=== PATIENT | female | born 1945 | race Caucasian/White ===

== ENCOUNTER 2021-11-24 10:12 | Emergency (ER) | payer MEDICARE ==
[~2021-11-24] VITALS: Ht 172.7 cm; Wt 109.1 kg
[2021-11-24] MEDS ORDERED: BACITRACIN TOPICAL OINT PACKET. TP ONE (10:30)
--- NOTE | 2021-11-24 10:40 | PHYS DOC ---
Past Medical History Additional Past Medical Histor: obesity Alcohol Use: None Drug Use: None General Adult EDM: Chief Complaint: WOUND CHECK HPI: HPI: Patient is a 76 year old female who presents with skin tear to her left lower extremity sustained yesterday and concern for UTI. Patient is currently in rehabilitation facility after having admission for pulmonary issues. Yesterday, during physical therapy, she scraped her left lerma on a metal box. Patient is on blood thinners. She refused to present to the hospital for wound closure yesterday. This morning, it was still bleeding, so she wanted to have it evaluated. Additionally, patient states that it "hurts like hell" when she has to pee and there is significant sediment and dark color. She currently has a Kolb catheter in place. Patient reports shortness of breath, but this is consistent with her current baseline. She has no other complaints at this time. Review of Systems: Review of Systems: ROS negative or noncontributory except as mentioned in HPI. Heart Score: C/O Chest Pain: No Current Medications: Current Medications Medications (Trade) Dose Ordered Sig/Finesse Start Time Stop Time Status Last Admin Dose Admin Bacitracin (Bacitracin Zinc Oint Pkt) 1 pkt 1X ONCE 11/24/21 10:30 11/24/21 10:31 UNV Allergies: Allergies: Allergies Coded Allergies Type Severity Reaction Last Updated Verified PARTH Inhibitors Allergy Unknown 11/24/21 Yes ciprofloxacin Allergy Unknown 11/24/21 Yes digoxin Allergy Unknown 11/24/21 Yes erythromycin base Allergy Unknown 11/24/21 Yes olmesartan Allergy Unknown 11/24/21 Yes Physical Exam: PE: Constitutional: Well developed, well nourished, no acute distress, non-toxic appearance. HENT: Normocephalic, atraumatic, bilateral external ears normal, nose normal. Eyes: EOMI, conjunctiva normal, no discharge. Neck: Normal range of motion,no stridor. Skin: Skin tear left lerma in a wide V-shape measuring 1.2x2cm with minimal bleeding. Skin otherwise warm, dry, no erythema, no rash. Back: No tenderness, no CVA tenderness. Extremities: No tenderness, no cyanosis, no clubbing, ROM intact, no edema. See above for skin tear on left lower leg. Neurologic: Alert and oriented x4, normal motor function, normal sensory function, no focal deficits noted. Current Patient Data: Labs: Laboratory Tests Test 11/24/21 10:44 Urine Collection Type U cath Urine Color (Auto) Yellow Urine Turbidity Turbid Urine pH (Auto) 7.0 (<5.0-8.0) Urine Specific [place] 1.017 (1.000-1.030) Urine Protein (Auto) 100 mg/dL (Negative) Urine Glucose (Auto)(UA) Negative mg/dL (Negative) Urine Ketones (Auto) Negative mg/dL (Negative) Urine Blood (Auto) Large (Negative) Urine Nitrite Negative (Negative) Urine Bilirubin (Auto) Negative (Negative) Urine Urobilinogen (Auto) Normal mg/dL (Normal) Urine Leukocyte Esterase (Auto) Large (Negative) Urine RBC Field obscured /HPF (0-2) Urine WBC >40 /HPF (0-4) Urine Bacteria Many /HPF (0-FEW) Vital Signs: Vital Signs Date Time Temp Pulse Resp B/P (MAP) Pulse Ox O2 Delivery O2 Flow Rate FiO2 11/24/21 11:14 51 18 188/81 (116) 97 Room Air 11/24/21 10:13 98.1 62 18 201/91 (127) 98 Room Air 98.1 Course & Med Decision Making: Course & Med Decision Making Pertinent Labs and Imaging studies reviewed. (See chart for details) Patient is a 76-year-old female who presents from rehabilitation/long-term for a skin tear on her left lower leg. Additionally, she thinks she might have UTI. Urinalysis reveals UTI, for which patient will be treated with Omnicef. Patient was scheduled to have an outpatient CT chest done today at 11 AM, but missed her appointment secondary to her visit here today. She has been rescheduled for 1:00 this afternoon. Patient received first dose of antibiotic here in the department and should continue when she returned to the long-term. Patient questions were answered. Return precautions were provided. Patient understands and is agreeable to discharge plan. Ankita Disclaimer: Ankita Disclaimer: This electronic medical record was generated, in whole or in part, using a voice recognition dictation system. Departure Departure Impression: Primary Impression: Noninfected skin tear of left leg Qualified Codes: S81.812A - Laceration without foreign body, left lower leg, initial encounter Additional Impression: Urinary tract infection Qualified Codes: N30.01 - Acute cystitis with hematuria Disposition: HOME / SELF CARE / HOMELESS Condition: STABLE Referrals: KLEVER CHOWDARY MD (PCP) Patient Instructions: Wound Care, [id number] Additional Instructions: EMERGENCY DEPARTMENT GENERAL DISCHARGE INSTRUCTIONS Thank you for coming to [facility] Emergency Department (ED) today and trusting us with you care. We trust that you had a positive experie nce in our Emergency Department. If you wish to speak to the department management, you may call the director at . YOUR FOLLOW UP INSTRUCTIONS ARE FOLLOWS: 1. Follow up with your primary care doctor. If you do not have a primary doctor, please ask for a resource list of physicians or clinics that may be able to assist you with follow up care. 2. The emergency provider has interpreted your imaging studies, if any were ordered. The radiology correctional treatment specialist also reviewed them. If there is a change in the findings, you will be notified in 48 hours when at all possible. 3. If a lab test or culture has been done, your results will be reviewed and you will be notified if you need a change in treatment. 4. Follow instructions verbalized to you and refer to the printouts if needed. ADDITIONAL INSTRUCTIONS AND INFORMATION: 1. Your care today has been supervised by a physician who is specially trained in emergency care. Many problems require more than one evaluation for a complete diagnosis and treatment. We recommend that you schedule your follow up appointment as recommended to ensure complete treatment of you illness or injury. If you are unable to obtain follow up care and continue to have a problem, or if your condition worsens, we recommend that you return to the ED. 2. We are not able to safely determine your condition over the phone nor are we able to give sound medical advice over the phone. For these safety reasons, if you call for medical advice we will ask you to come to the ED for further evaluation. 3. If you have any questions regarding these discharge instructions please call the ED at . SAFETY INFORMATION: In the interest of safety, wellness, and injury prevention; we encourage you to wear your seat belt, if you smoke; quite smoking, and we encourage family to use a protective helmet for bicycling and other sporting events that present an increased risk for head injury. IF YOUR SYMPTOMS WORSEN OR NEW SYMPTOMS DEVELOP, OR YOU HAVE CONCERNS ABOUT YOUR CONDITION; OR IF YOUR CONDITION WORSENS WHILE YOU ARE WAITING FOR YOUR FOLLOW UP APPOINTMENT; EITHER CONTACT YOUR PRIMARY CARE DOCTOR, THE PHYSICIAN WHOSE NAME AND NUMBER YOU WERE GIVEN, OR RETURN TO THE ED IMMEDIATELY. Scripts Cefdinir (CEFDINIR) 300 Mg Capsule 1 CAP PO BID, #[id number] CAP Prov: PABLITO WATTS 11/24/21 PABLITO WATTS November 24, 2021 10:40
[2021-11-24 11:14] VITALS: BP 188/81
[2021-11-24] MEDS ORDERED: DIPHTH,PERTUSS(ACELL),TET TOX 0.5 ML DISP.SYRIN. VAX IM ONE (11:15)
[2021-11-24 11:16] LABS: BACTERIA,URINE MANY /HPF (0-FEW)
[2021-11-24 11:18] LABS: RBC,URINE FIELD OBSCURED /HPF (0-2); WBC,URINE >40 /HPF (0-4)
[2021-11-24] MEDS ORDERED: CEFD300C PO (11:29)
[2021-11-24] MEDS ORDERED: CEFDINIR 300 MG CAPSULE PO ONE (11:30)
[2021-11-24] MEDS ORDERED: SURGICEL HEMOSTAT 4X8 EACH. TP ONE (15:45)
[2021-11-24] MEDS ORDERED: GELATIN SPONGE SIZE 12-7MM SPONGE. TP ONE (16:00)
== END 2021-11-24 12:13 | disposition home or self-care (01) ==
LOC: ER 10:12
DX: S81.812A Laceration without foreign body, left lower leg, initial encounter (principal); N30.01 Acute cystitis with hematuria; Y28.8XXA Contact with other sharp object, undetermined intent, initial encounter; Y93.89 Activity, other specified; Y92.89 Other specified places as the place of occurrence of the external cause; Y99.8 Other external cause status
CPT/HCPCS: 81001; 87086; 90471; 90715; 99283-25

== ENCOUNTER → 2021-11-24 | Outpatient (CLI) | payer MEDICARE ==
[~2021-11-24] MED LIST: CEFD300C PO; GELATIN SPONGE SIZE 12-7MM SPONGE. ONE
[2021-11-24 10:13] VITALS: BP 201/91
--- NOTE | 2021-11-24 15:23 | RAD ---
CT of the chest without contrast: Clinical History: Pulmonary edema. Axial helical images of the chest were obtained without contrast. Findings comparison is 9 mm pulmonary nodule in the right lower lobe. There is a small right pleural effusion with adjacent infiltrate. There is linear opacities along the major fissure on the right. Th e left lung is clear. The heart is mildly dilated. There is minimal coronary artery calcifications. There is no mediastinal or hilar lymphadenopathy. Impression: 1. Small right effusion with adjacent infiltrate. 2. 9 mm pulmonary nodule right lower lobe. 3. Additional pulmonary infiltrates or decubitus atelectasis or pneumonia. 4. Dilated cardiomegaly. Recommend a 3-6 month follow-up CT chest without contrast. End of impression PQRS Compliance Statement: One or more of the following individualized dose reduction techniques were utilized for this examinat ion: 1. Automated exposure control 2. Adjustment of the mA and/or kV according to patient size 3. Use of iterative reconstruction technique Electronically signed by: Marciano Walsh III, MD (11/24/2021 3:21 PM) [facility]
== END ==
LOC: CT 15:03
PROVIDERS: ATTEND Internal Medicine
DX: R91.1 Solitary pulmonary nodule (principal); J90 Pleural effusion, not elsewhere classified; I51.7 Cardiomegaly; I25.10 Atherosclerotic heart disease of native coronary artery without angina pectoris
CPT/HCPCS: 71250

== ENCOUNTER 2021-12-06 09:34 | Inpatient (IN) | payer MEDICARE, BC ==
[~2021-12-06] VITALS: Ht 172.7 cm; Wt 113.8 kg
[~2021-12-06 09:34] MED LIST changes: -GELATIN SPONGE SIZE 12-7MM SPONGE. ONE
[2021-12-06] MEDS ORDERED: ASPIRIN 325 MG TABLET PO ONE (09:45)
[2021-12-06 10:05] LABS: BASO # 0.1 x10^3/uL (0.0-0.2); BASO % 1 % (0-3); EOS # 0.2 x10^3/uL (0.0-0.7); EOS % 3 % (0-3); HEMATOCRIT 33.5 % (36.0-47.0); HEMOGLOBIN 10.9 g/dL (12.0-15.5); LYMPH # 1.1 x10^3/uL (1.0-4.8); LYMPH % 16 % (24-48); MEAN CORPUSCULAR HEMOGLOBIN 31 pg (25-35); MEAN CORPUSCULAR HGB CONC 32 g/dL (31-37); MEAN CORPUSCULAR VOLUME 96 fL (79-100); MONO # 0.5 x10^3/uL (0.0-1.1); MONO % 6 % (0-9); NEUT # 5.2 x10^3/uL (1.8-7.7); NEUT % 74 % (31-73); PLATELET COUNT 351 x10^3/uL (140-400); RED CELL DISTRIBUTION WIDTH 14.2 % (11.5-14.5); WHITE BLOOD COUNT 7.1 x10^3/uL (4.0-11.0)
[2021-12-06] MEDS ORDERED: FUROSEMIDE 40 MG/4 ML VIAL. IVP ONE (10:15)
[2021-12-06 10:16] LABS: PROTHROMBIN TIME PATIENT 16.2 SEC (11.7-14.0)
[2021-12-06 10:20] LABS: CALCIUM 8.9 mg/dL (8.5-10.1); CREATININE 0.8 mg/dL (0.6-1.0); GFR 69.6; POTASSIUM 3.6 mmol/L (3.5-5.1)
[2021-12-06 10:25] LABS: ALBUMIN 2.6 g/dL (3.4-5.0); ALBUMIN/GLOBULIN RATIO 0.7 (1.0-1.7); MAGNESIUM 1.9 mg/dL (1.8-2.4); TOTAL BILIRUBIN 0.2 mg/dL (0.2-1.0); TOTAL PROTEIN 6.4 g/dL (6.4-8.2)
--- NOTE | 2021-12-06 12:11 | EKG ---
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
--- NOTE | 2021-12-06 12:12 | EKG ---
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
--- NOTE | 2021-12-06 12:41 | PHYS DOC ---
Past Medical History Additional Past Medical Histor: obesity, lymphedema, TAMEKA Past Surgical History: Other Additional Past Surgical Histo: artifical right eye, right arm amputation Smoking Status: Former Smoker Alcohol Use: None General Adult EDM: Chief Complaint: SHORTNESS OF BREATH HPI: HPI: Patient is a 76 year old female with history of heart failure presents with shortness of breath. Patient was picked up from assisted living facility placed on CPAP due to low oxygen levels, patient recovered well after being placed on CPAP. Patient brought to the emergency department. She was able to be placed on nasal cannula, patient stable besides shortness of breath and increased oxygen requirement. No other symptoms noted besides cough. Review of Systems: Review of Systems: Constitutional: Denies fever or chills. [] Eyes: Denies change in visual acuity. [] HENT: Denies nasal congestion or sore throat. [] Respiratory: Positive cough and shortness of breath. [] Cardiovascular: Denies chest pain or edema. [] GI: Denies abdominal pain, nausea, vomiting, bloody stools or diarrhea. [] : Denies dysuria. [] Musculoskeletal: Denies back pain or joint pain. [] Integument: Denies rash. [] Neurologic: Denies headache, focal weakness or sensory changes. [] Endocrine: Denies polyuria or polydipsia. [] Lymphatic: Denies swollen glands. [] Psychiatric: Denies depression or anxiety. [] Heart Score: C/O Chest Pain: No Risk Factors: Risk Factors: DM, Current or recent (<one month) smoker, HTN, HLP, family history of CAD, obesity. Risk Scores: Score 0 - 3: 2.5% MACE over next 6 weeks - Discharge Home Score 4 - 6: 20.3% MACE over next 6 weeks - Admit for Clinical Observation Score 7 - 10: 72.7% MACE over next 6 weeks - Early Invasive Strategies Current Medications: Current Medications Medications (Trade) Dose Ordered Sig/Finesse Start Time Stop Time Status Last Admin Dose Admin Aspirin (Jannie Aspirin) 325 mg 1X ONCE 12/06/21 09:45 12/06/21 09:46 DC Furosemide (Lasix) 40 mg 1X ONCE 12/06/21 10:15 12/06/21 10:16 DC 12/06/21 10:32 40 MG Allergies: Allergies: Allergies Coded Allergies Type Severity Reaction Last Updated Verified PARTH Inhibitors Allergy Intermediate 11/24/21 Yes ciprofloxacin Allergy Intermediate 11/24/21 Yes digoxin Allergy Intermediate 11/24/21 Yes erythromycin base Allergy Intermediate 11/24/21 Yes olmesartan Allergy Intermediate 11/24/21 Yes Physical Exam: PE: Constitutional: Well developed, well nourished, no acute distress, non-toxic appearance. [] HENT: Normocephalic, atraumatic, bilateral external ears normal, oropharynx moist, no oral exudates, nose normal. [] Eyes: PERRLA, EOMI, conjunctiva normal, no discharge. [] Neck: Normal range of motion, no tenderness, supple, no stridor. [] Cardiovascular:Heart rate regular rhythm, no murmur [] Lungs & Thorax: Bilateral breath sounds diminished with minimal crackles at bases [] Abdomen: Bowel sounds normal, soft, no tenderness, no masses, no pulsatile masses. [] Skin: Warm, dry, no erythema, no rash. [] Back: No tenderness, no CVA tenderness. [] Extremities: No tenderness, no cyanosis, no clubbing, ROM intact, 2+ bilateral pitting edema. [] Neurologic: Alert and oriented X 3, normal motor function, normal sensory function, no focal deficits noted. [] Psychologic: Affect normal, judgement normal, mood normal. [] Current Patient Data: Labs: Laboratory Tests Test 12/06/21 09:50 White Blood Count 7.1 x10^3/uL (4.0-11.0) Red Blood Count 3.50 x10^6/uL (3.50-5.40) Hemoglobin 10.9 g/dL (12.0-15.5) L Hematocrit 33.5 % (36.0-47.0) L Mean Corpuscular Volume 96 fL (79-100) Mean Corpuscular Hemoglobin 31 pg (25-35) Mean Corpuscular Hemoglobin Concent 32 g/dL (31-37) Red Cell Distribution Width 14.2 % (11.5-14.5) Platelet Count 351 x10^3/uL (140-400) Neutrophils (%) (Auto) 74 % (31-73) H Lymphocytes (%) (Auto) 16 % (24-48) L Monocytes (%) (Auto) 6 % (0-9) Eosinophils (%) (Auto) 3 % (0-3) Basophils (%) (Auto) 1 % (0-3) Neutrophils # (Auto) 5.2 x10^3/uL (1.8-7.7) Lymphocytes # (Auto) 1.1 x10^3/uL (1.0-4.8) Monocytes # (Auto) 0.5 x10^3/uL (0.0-1.1) Eosinophils # (Auto) 0.2 x10^3/uL (0.0-0.7) Basophils # (Auto) 0.1 x10^3/uL (0.0-0.2) Prothrombin Time 16.2 SEC (11.7-14.0) H Prothrombin Time INR 1.3 (0.8-1.1) H Sodium Level 143 mmol/L (136-145) Potassium Level 3.6 mmol/L (3.5-5.1) Chloride Level 107 mmol/L (98-107) Carbon Dioxide Level 28 mmol/L (21-32) Anion Gap 8 (6-14) Blood Urea Nitrogen 12 mg/dL (7-20) Creatinine 0.8 mg/dL (0.6-1.0) Estimated GFR (Cockcroft-Gault) 69.6 BUN/Creatinine Ratio 15 (6-20) Glucose Level 145 mg/dL (70-99) H Calcium Level 8.9 mg/dL (8.5-10.1) Magnesium Level 1.9 mg/dL (1.8-2.4) Total Bilirubin 0.2 mg/dL (0.2-1.0) Aspartate Amino Transferase (AST) 27 U/L (15-37) Alanine Aminotransferase (ALT) 46 U/L (14-59) Alkaline Phosphatase 97 U/L (46-116) Troponin I High Sensitivity 17 ng/L (4-50) GY-Zav-Y-Type Natriuretic Peptide 1081 pg/mL (0-449) H Total Protein 6.4 g/dL (6.4-8.2) Albumin 2.6 g/dL (3.4-5.0) L Albumin/Globulin Ratio 0.7 (1.0-1.7) L Lipase 198 U/L (73-393) Procalcitonin < 0.10 ng/mL (0.00-0.10) Thyroid Stimulating Hormone (TSH) 3.417 uIU/mL (0.358-3.74) Laboratory Tests 12/06/21 09:50 Laboratory Tests 12/06/21 09:50 Vital Signs: Vital Signs Date Time Temp Pulse Resp B/P (MAP) Pulse Ox O2 Delivery O2 Flow Rate FiO2 12/06/21 09:40 98.1 72 24 170/78 (108) 99 Nasal Cannula 2.0 98.1 EKG: EKG: Sinus rhythm [] Radiology/Procedures: Radiology/Procedures: Chest x-ray with moderate right pleural effusion and pulmonary edema bilatera lly, cardiomegaly, likely compressive atelectasis on the right. [] Impression: CHF exacerbation, hypoxia Course & Med Decision Making: Course & Med Decision Making Pertinent Labs and Imaging studies reviewed. (See chart for details) 76-year-old female seen and evaluated by myself. Patient with CHF exacerbation consistent with labs and imaging findings. History consistent as well. Patient was given 40 mg of Lasix IV push x1, troponin negative, patient given 325 aspirin, no leukocytosis. Given that the patient is requiring more oxygen and is weaker than usual, patient was admitted to the service of Dr Chowdary, who accepts the patient. Patient admitted in stable condition. Dragon Disclaimer: [employer] Disclaimer: This electronic medical record was generated, in whole or in part, using a voice recognition dictation system. Departure Departure Referrals: KLEVER CHOWDARY MD (PCP) ELIECER BOLAÑOS MD December 06, 2021 12:41
--- NOTE | 2021-12-06 14:00 | NUR ---
Patient arrived to room 671 via bed from ER around 1400. Patient A&OX4. VSS. No complaints of pain at this time. The patient, ELIZABETH BOLANOS, 76 y/o, F admitted by KLEVER CHOWDARY MD, was given written information regarding hospital policies, unit procedures and contact persons. Valuables were checked and noted. Will continue to monitor.
[2021-12-06 14:25] VITALS: BP 154/70
--- NOTE | 2021-12-06 15:59 | RAD ---
XR CHEST 1V History: Short of air. Comparison: CT chest 11/24/2021 Technique: Portable AP radiograph of the chest. Findings: The lungs are adequately inflated. Moderate right pleural effusion redemonstrated. Diffuse prominence of the pulmonary vasculature and interstitial markings. Right basilar consolidation adjacent to effu loy. No pneumothorax. Enlarged cardiac silhouette. Degenerative changes of the spine and shoulders. Soft tissues are unremarkable. Impression: 1. Moderate right pleural effusion with right adjacent right basilar consolidation likely compressiv e atelectasis. 2. Cardiomegaly and pulmonary vascular congestion. Electronically signed by: Basil Ryder MD (12/06/2021 10:11 AM) [id number]
[2021-12-06] MEDS ORDERED: METO-313 PO (16:14)
[2021-12-06] MEDS ORDERED: RIVA10TA PO (16:14)
[2021-12-06] MEDS ORDERED: ACET325T9 PO (16:14)
[2021-12-06] MEDS ORDERED: AMIO200T53 PO (16:14)
[2021-12-06] MEDS ORDERED: RIVA20TA2 PO (16:43)
[2021-12-06] MEDS ORDERED: HYOS0.1264 SL (16:43)
[2021-12-06] MEDS ORDERED: DOCU-109 PO (16:43)
[2021-12-06] MEDS ORDERED: LIDO700A21 TP (16:43)
[2021-12-06] MEDS ORDERED: TAMO20TA PO (16:43)
[2021-12-06] MEDS ORDERED: METO50TA6 PO (16:43)
[2021-12-06] MEDS ORDERED: MAGN24003 PO (16:43)
[2021-12-06] MEDS ORDERED: MAGNESIUM HYDROXIDE 2,400 MG/30 ML ORAL.SUSP. PO PRN (17:00)
[2021-12-06] MEDS ORDERED: HYOSCYAMINE 0.125 MG TAB.RAPDIS PO PRN (17:00)
[2021-12-06] MEDS ORDERED: ACETAMINOPHEN 325 MG TABLET. PO PRN (17:00)
[2021-12-06 17:52] LABS: BARBITURATES NEG (NEG); BENZODIAZEPINES NEG (NEG); CANNABINOIDS NEG (NEG); COCAINE NEG (NEG); METHADONE NEG (NEG); OPIATES NEG (NEG); PHENCYCLIDINE NEG (NEG)
[2021-12-06] MEDS: DOCUSATE SODIUM 100 MG CAPSULE. PO SCH (17:52)
[2021-12-06] MEDS: RIVAROXABAN 10 MG TABLET. PO SCH (17:52)
[2021-12-06 17:58] LABS: BACTERIA,URINE FEW /HPF (0-FEW)
[2021-12-06 18:04] LABS: AMPHETAMINE/METHAMPHETAMINE NEG (NEG)
[2021-12-06 19:21] VITALS: BP_SYST 154; BP_SYST 161; BP_DIAS 70
[2021-12-06] MEDS ORDERED: HYOSCYAMINE SULFATE SL PRN (20:00)
[2021-12-06] MEDS: METOPROLOL TART IMMED RELEASE 50 MG TABLET. PO SCH (21:28)
[2021-12-06 22:25] VITALS: BP 177/75
[2021-12-07 02:36] VITALS: BP 153/71
[2021-12-07] MEDS: METOPROLOL TART IMMED RELEASE 50 MG TABLET. PO SCH ×2 (08:27→21:22)
[2021-12-07] MEDS: DOCUSATE SODIUM 100 MG CAPSULE. PO SCH ×2 (08:28→21:00)
[2021-12-07] MEDS: AMIODARONE HCL 200 MG TABLET. PO SCH (08:28)
[2021-12-07] MEDS: LIDOCAINE (700MG/PATCH) PATCH. TP SCH (08:29)
[2021-12-07] MEDS: TAMOXIFEN 10 MG TABLET PO SCH (08:39)
--- NOTE | 2021-12-07 09:00 | PDOC2 ---
HAZEL CHAVEZ ANALYTICAL MANAGER 12/07/21 0900: CARDIAC CONSULT DATE OF CONSULT Date of Consult DATE: 12/07/21 TIME: 08:22 REASON FOR CONSULT Reason for Consult: CHF REFERRING PHYSICIAN Referring Physician: Erwin SOURCE Source: Chart review, Patient HISTORY OF PRESENT ILLNESS HISTORY OF PRESENT ILLNESS This is a 76 yo female admitted for complains of shortness of breath. She was noted to be hypoxic noted at the assited living and improved with CPAP placement. She was in [facility] in the end of September to which she was critically ill at that time and treated for persistent right parapneumonic effusion r/t recent pneumonia and chest tube was placed at that time and spent sometime in ICU as well. She was placed on bipap at that time with associated diastolic CHF but did not get intubated. She was not progressing well at that time and her daughter Libra was consulted and the pt was then converted to hospice care as she was deemed with poor prognosis. She did changed her mind and revoked her hospice and has been getting rehab treatments. She is debilitated and could not ambulate very well. She has chronic LE lymphedema. she is quite anxious about specifics of her treatment. She does not want to go back to . Her right pleural effusion remains and was being considered for decortication when she was at [facility] but this was cancelled due to her critical state and eventaully converted to hospice. Denies any chest pain or palpitations. No nausea or vomiting. She does not really remember what happened except that she was short of breath and EMS was called. No prior hx of arrhythmia. CAD, VTE. PAST MEDICAL HISTORY Cardiovascular: AFIB, CHF, HTN, Aortic stenosis, Valve insufficiency (MR and TR) Pulmonary: Pneumonia, Other (TAMEKA, right parapneumonic transfusion) CENTRAL NERVOUS SYSTEM: Other (encephalopathy) GI: Constipation Heme/Onc: Anemia NOS, Cancer (uterine, breast), Other (prior xarelto) Hepatobiliary: No pertinent hx Musculoskeletal: Osteoarthritis, Other (congenital absence of RFA) Infectious disease: Other (sepsis with bacteremia ) ENT: Other (Congential left eye blindness/defect) Endocrine: Diabetes, Other (thyroid nodule) PAST SURGICAL HISTORY Past Surgical History: Appendectomy, Cholecystectomy, Tonsillectomy, Hysterectomy, Other (lumpectomy; chest tube placement. ) FAMILY HISTORY Family History: Stroke (mother) SOCIAL HISTORY Smoke: No ALCOHOL: none Drugs: None [place] CURRENT MEDICATIONS CURRENT MEDICATIONS Current Medications Medications (Trade) Dose Ordered Sig/Finesse Route PRN Reason Start Time Stop Time Status Last Admin Dose Admin Furosemide (Lasix) 40 mg 1X ONCE IVP 12/06/21 10:15 12/06/21 10:16 DC 12/06/21 10:32 Metoprolol Tartrate (Lopressor) 50 mg BID PO 12/06/21 21:00 12/06/21 21:28 Rivaroxaban (Xarelto) 20 mg DAILYWSUP PO 12/06/21 17:00 12/06/21 17:52 ALLERGIES ALLERGIES: Coded Allergies: PARTH Inhibitors (Verified Allergy, Intermediate, 11/24/21) ciprofloxacin (Verified Allergy, Intermediate, 11/24/21) digoxin (Verified Allergy, Intermediate, 11/24/21) erythromycin base (Verified Allergy, Intermediate, 11/24/21) olmesartan (Verified Allergy, Intermediate, 11/24/21) ROS Review of System 14 point ROS evaluated with pertinent positives noted per HPI PHYSICAL EXAM General: Alert, Oriented X3, Cooperative, No acute distress HEENT: Atraumatic, Mucous membr. moist/pink, Other (left eye prosthetic) Lungs: Other (basilar crackles) Heart: Regular rate (SR), Normal S1, Normal S2, Other (S4 5/6 systolic murmur loudest to CATHERINE border) Extremities: No cyanosis, Other (2+ bilateral LE pitting edema; absent RFA) Skin: Other (left lerma wound with pink erythema to site) Neuro: Normal speech, Sensation intact Psych/Mental Status: Mental status NL, Mood NL MUSCULOSKELETAL: Osteoarthritic changes both hands, Other (absent RFA) VITALS/I&O VITALS/I&O: Vital Signs Date Time Temp Pulse Resp B/P (MAP) Pulse Ox O2 Delivery O2 Flow Rate FiO2 12/07/21 07:00 99.1 61 19 93 Room Air 99.1 12/06/21 20:00 2.0 I & O 12/06/21 12/06/21 12/07/21 15:00 23:00 07:00 Intake Total 180 ml 440 ml Output Total 800 ml Balance -620 ml 440 ml LABS Lab: Laboratory Tests Test 12/06/21 09:50 12/06/21 17:30 White Blood Count 7.1 x10^3/uL (4.0-11.0) Red Blood Count 3.50 x10^6/uL (3.50-5.40) Hemoglobin 10.9 g/dL (12.0-15.5) L Hematocrit 33.5 % (36.0-47.0) L Mean Corpuscular Volume 96 fL (79-100) Mean Corpuscular Hemoglobin 31 pg (25-35) Mean Corpuscular Hemoglobin Concent 32 g/dL (31-37) Red Cell Distribution Width 14.2 % (11.5-14.5) Platelet Count 351 x10^3/uL (140-400) Neutrophils (%) (Auto) 74 % (31-73) H Lymphocytes (%) (Auto) 16 % (24-48) L Monocytes (%) (Auto) 6 % (0-9) Eosinophils (%) (Auto) 3 % (0-3) Basophils (%) (Auto) 1 % (0-3) Neutrophils # (Auto) 5.2 x10^3/uL (1.8-7.7) Lymphocytes # (Auto) 1.1 x10^3/uL (1.0-4.8) Monocytes # (Auto) 0.5 x10^3/uL (0.0-1.1) Eosinophils # (Auto) 0.2 x10^3/uL (0.0-0.7) Basophils # (Auto) 0.1 x10^3/uL (0.0-0.2) Prothrombin Time 16.2 SEC (11.7-14.0) H Prothrombin Time INR 1.3 (0.8-1.1) H Sodium Level 143 mmol/L (136-145) Potassium Level 3.6 mmol/L (3.5-5.1) Chloride Level 107 mmol/L (98-107) Carbon Dioxide Level 28 mmol/L (21-32) Anion Gap 8 (6-14) Blood Urea Nitrogen 12 mg/dL (7-20) Creatinine 0.8 mg/dL (0.6-1.0) Estimated GFR (Cockcroft-Gault) 69.6 BUN/Creatinine Ratio 15 (6-20) Glucose Level 145 mg/dL (70-99) H Calcium Level 8.9 mg/dL (8.5-10.1) Magnesium Level 1.9 mg/dL (1.8-2.4) Total Bilirubin 0.2 mg/dL (0.2-1.0) Aspartate Amino Transferase (AST) 27 U/L (15-37) Alanine Aminotransferase (ALT) 46 U/L (14-59) Alkaline Phosphatase 97 U/L (46-116) Troponin I High Sensitivity 17 ng/L (4-50) OR-Ppv-L-Type Natriuretic Peptide 1081 pg/mL (0-449) H Total Protein 6.4 g/dL (6.4-8.2) Albumin 2.6 g/dL (3.4-5.0) L Albumin/Globulin Ratio 0.7 (1.0-1.7) L Lipase 198 U/L (73-393) Procalcitonin < 0.10 ng/mL (0.00-0.10) Thyroid Stimulating Hormone (TSH) 3.417 uIU/mL (0.358-3.74) Urine Collection Type Unknown Urine Color (Auto) Colorless Urine Turbidity Clear Urine pH (Auto) 5.0 (<5.0-8.0) Urine Specific [place] 1.006 (1.000-1.030) Urine Protein (Auto) Negative mg/dL (Negative) Urine Glucose (Auto)(UA) Negative mg/dL (Negative) Urine Ketones (Auto) Negative mg/dL (Negative) Urine Blood (Auto) Moderate (Negative) Urine Nitrite Negative (Negative) Urine Bilirubin (Auto) Negative (Negative) Urine Urobilinogen (Auto) Normal mg/dL (Normal) Urine Leukocyte Esterase (Auto) Small (Negative) Urine RBC 6-10 /HPF (0-2) Urine WBC 1-4 /HPF (0-4) Urine Squamous Epithelial Cells Occ /LPF Urine Bacteria Few /HPF (0-FEW) Urine Mucus Slight /LPF Urine Opiates Screen Neg (NEG) Urine Methadone Screen Neg (NEG) Urine Barbiturates Neg (NEG) Urine Phencyclidine Screen Neg (NEG) Urine Amphetamine/Methamphetamine Neg (NEG) Urine Benzodiazepines Screen Neg (NEG) Urine Cocaine Screen Neg (NEG) Urine Cannabinoids Screen Neg (NEG) Urine Ethyl Alcohol Neg (NEG) Laboratory Tests 12/06/21 09:50 Laboratory Tests 12/06/21 09:50 IMAGES IMAGES FINDINGS: at [facility] Support Devices: Stable positioning of the right internal jugular central venous catheter. The previously placed large bore right thoracotomy tube remains in place with the side port at the right lateral chest wall. Interval placement of bilateral pigtail pleural drains. Lungs/Pleura: The lung volume is normal. Similar right greater than left lower lung zone opacities. Pulmonary nodules better evaluated on recent CT chest. Decrease in size of the now small left pleural effusion. Persistent moderate right pleural effusion. No pneumothorax. Heart and Mediastinum: The cardiomediastinal silhouette is stable. Osseous structures: Thoracic spondylosis. IMPRESSION Interval placement of bilateral pigtail pleural drains with stable additional support devices as described. No postprocedural pneumothorax. Improved, now small left pleural effusion with persistent moderate right pleural effusion and adjacent bibasilar atelectasis. Similar mid and lower lung zone opacities, which may represent atelectasis and/or edema. Persistent mild cardiomegaly. By my electronic signature, I attest that I have personally reviewed the images for this examination and formulated the interpretations and opinions expressed in this report 10/17/2021 3:09 PM. ECHOCARDIOGRAM ECHOCARDIOGRAM Echocardiographic Findings [facility] 10/13/2021 Left Ventricle The left ventricular size is normal. Concentric remodeling. The left ventricular systolic function is normal. The ejection fraction by Nicholson's biplane method is 65%. There are no segmental wall motion abnormalities. Grade I (mild) left ventricular diastolic dysfunction. Normal left atrial pressure. Right Ventricle The right ventricular size is normal. The right ventricular systolic function is normal. Left Atrium Moderately dilated. Right Atrium Normal size. IVC/SVC Normal central venous pressure (0-5 mm Hg). Mitral Valve Non-specific thickening. No stenosis. Mild regurgitation. There is mitral annular calcification. Tricuspid Valve Normal valve structure. No stenosis. Mild regurgitation. Aortic Valve The valve is calcified. Moderate stenosis. Trace regurgitation. Pulmonary The pulmonic valve was not seen well but no Doppler evidence of stenosis. No regurgitation. Aorta The aortic root and ascending aorta are normal in size. Pericardium No pericardial effusion. Left pleural effusion. ASSESSMENT/PLAN ASSESSMENT/PLAN 1. Acute on chronic diastolic CHF: better compensated 2. Acute hypoxic respiratory failure: persisted right pleural effusion and CHF with suspected uncontrolled TAMEKA 2. PAFIB: Maintaining SR 3. Prior hospice: revoked 4. HTN: labile episodes 5. Hx of breast and uterine CA 6. Hx of DM2 7. Valvular insufficiency: Moderate 8. Persistent right pleural effusion: was considered for decortication 9. Obesity and Debility 10. Chronic lymphedema with left lerma wound 11. Hx of Pulmonary HTN Recommendations 1. Lasix 2. Will need TAMEKA workup 3. Continue amiodarone for rhythm maintenance. Continue metoprolol. Xarelto for stroke prevention 4. Consult pulmonary 5. She does not want to go back to [facility], she will need outpt cardiology referral near [place] as she lives close to that area. She will need future outpt stress test. 6. BMP, Mg, FLP and A1C SHAKIRA GRADY MD 12/07/211909: CARDIAC CONSULT ASSESSMENT/PLAN ASSESSMENT/PLAN Patient seen and examined. Agree with [employer]'s assessment and plan. Acute on chr diastolic HF better compensated PAF maintaining SR Continue amiodarone for rhythm maintenance and xarelto for stroke prophylaxis Recent 2D echo showed LVEF 65% Consider ischemic evaluation as outpatient Thank you for your consultation HAZEL CHAVEZ APRN December 07, 2021 09:00 SHAKIRA GRADY MD December 07, 2021 19:10
[2021-12-07 11:00] VITALS: BP 222/84
[2021-12-07] MEDS ORDERED: FUROSEMIDE 40 MG/4 ML VIAL. IVP ONE (11:00)
--- NOTE | 2021-12-07 11:15 | NUR ---
Wound Care Wound Type/Assessment: patient seen per wound care consult. see wound assessment. patient has a left lower leg wound, patient stated she hit it on a bed frame trying to do PT. the wound was cleaned, and redressed with the recommended dressing of Xeroform gauze with a foam. assessed patients bottom and no wounds noted, patient has some peeling skin. Treatment Recommendations/Plan: Recommendations to the left lower leg- cleanse the wound then apply Xeroform gauze with a foam dressing, change lenny 2-3 days. Education provided: Educated patient on pressure prevention and turning and the wound care dressing for the left lower leg Discharge Recommendations for dressings: Wound care will continue to f/u
[2021-12-07 11:56] LABS: CALCIUM 8.6 mg/dL (8.5-10.1); CREATININE 0.8 mg/dL (0.6-1.0); GFR 69.6; POTASSIUM 3.4 mmol/L (3.5-5.1)
--- NOTE | 2021-12-07 11:57 | PDOC ---
PULMONARY PROGRESS NOTES DATE: 12/07/21 TIME: 11:56 Vitals Vital Signs Date Time Temp Pulse Resp B/P (MAP) Pulse Ox O2 Delivery O2 Flow Rate FiO2 12/07/21 08:28 64 214/88 12/07/21 08:00 Nasal Cannula 2.0 12/07/21 07:00 99.1 19 93 99.1 Labs Laboratory Tests Test 12/06/21 09:50 12/06/21 17:30 12/07/21 07:25 White Blood Count 7.1 x10^3/uL (4.0-11.0) Red Blood Count 3.50 x10^6/uL (3.50-5.40) Hemoglobin 10.9 g/dL (12.0-15.5) Hematocrit 33.5 % (36.0-47.0) Mean Corpuscular Volume 96 fL (79-100) Mean Corpuscular Hemoglobin 31 pg (25-35) Mean Corpuscular Hemoglobin Concent 32 g/dL (31-37) Red Cell Distribution Width 14.2 % (11.5-14.5) Platelet Count 351 x10^3/uL (140-400) Neutrophils (%) (Auto) 74 % (31-73) Lymphocytes (%) (Auto) 16 % (24-48) Monocytes (%) (Auto) 6 % (0-9) Eosinophils (%) (Auto) 3 % (0-3) Basophils (%) (Auto) 1 % (0-3) Neutrophils # (Auto) 5.2 x10^3/uL (1.8-7.7) Lymphocytes # (Auto) 1.1 x10^3/uL (1.0-4.8) Monocytes # (Auto) 0.5 x10^3/uL (0.0-1.1) Eosinophils # (Auto) 0.2 x10^3/uL (0.0-0.7) Basophils # (Auto) 0.1 x10^3/uL (0.0-0.2) Prothrombin Time 16.2 SEC (11.7-14.0) Prothromb Time International Ratio 1.3 (0.8-1.1) Sodium Level 143 mmol/L (136-145) Potassium Level 3.6 mmol/L (3.5-5.1) Chloride Level 107 mmol/L (98-107) Carbon Dioxide Level 28 mmol/L (21-32) Anion Gap 8 (6-14) Blood Urea Nitrogen 12 mg/dL (7-20) Creatinine 0.8 mg/dL (0.6-1.0) Estimated GFR (Cockcroft-Gault) 69.6 BUN/Creatinine Ratio 15 (6-20) Glucose Level 145 mg/dL (70-99) Calcium Level 8.9 mg/dL (8.5-10.1) Magnesium Level 1.9 mg/dL (1.8-2.4) Total Bilirubin 0.2 mg/dL (0.2-1.0) Aspartate Amino Transf (AST/SGOT) 27 U/L (15-37) Alanine Aminotransferase (ALT/SGPT) 46 U/L (14-59) Alkaline Phosphatase 97 U/L (46-116) Troponin I High Sensitivity 17 ng/L (4-50) 15 ng/L (4-50) EB-Jry-W-Type Natriuretic Peptide 1081 pg/mL (0-449) Total Protein 6.4 g/dL (6.4-8.2) Albumin 2.6 g/dL (3.4-5.0) Albumin/Globulin Ratio 0.7 (1.0-1.7) Lipase 198 U/L (73-393) Procalcitonin < 0.10 ng/mL (0.00-0.10) Thyroid Stimulating Hormone (TSH) 3.417 uIU/mL (0.358-3.74) Urine Collection Type Unknown Urine Color (Auto) Colorless Urine Turbidity Clear Urine pH (Auto) 5.0 (<5.0-8.0) Urine Specific [place] 1.006 (1.000-1.030) Urine Protein (Auto) Negative mg/dL (Negative) Urine Glucose (Auto)(UA) Negative mg/dL (Negative) Urine Ketones (Auto) Negative mg/dL (Negative) Urine Blood (Auto) Moderate (Negative) Urine Nitrite Negative (Negative) Urine Bilirubin (Auto) Negative (Negative) Urine Urobilinogen (Auto) Normal mg/dL (Normal) Urine Leukocyte Esterase (Auto) Small (Negative) Urine RBC 6-10 /HPF (0-2) Urine WBC 1-4 /HPF (0-4) Urine Squamous Epithelial Cells Occ /LPF Urine Bacteria Few /HPF (0-FEW) Urine Mucus Slight /LPF Urine Opiates Screen Neg (NEG) Urine Methadone Screen Neg (NEG) Urine Barbiturates Neg (NEG) Urine Phencyclidine Screen Neg (NEG) Urine Amphetamine/Methamphetamine Neg (NEG) Urine Benzodiazepines Screen Neg (NEG) Urine Cocaine Screen Neg (NEG) Urine Cannabinoids Screen Neg (NEG) Urine Ethyl Alcohol Neg (NEG) Laboratory Tests Test 12/06/21 17:30 12/07/21 07:25 Urine Collection Type Unknown Urine Color (Auto) Colorless Urine Turbidity Clear Urine pH (Auto) 5.0 (<5.0-8.0) Urine Specific [place] 1.006 (1.000-1.030) Urine Protein (Auto) Negative mg/dL (Negative) Urine Glucose (Auto)(UA) Negative mg/dL (Negative) Urine Ketones (Auto) Negative mg/dL (Negative) Urine Blood (Auto) Moderate (Negative) Urine Nitrite Negative (Negative) Urine Bilirubin (Auto) Negative (Negative) Urine Urobilinogen (Auto) Normal mg/dL (Normal) Urine Leukocyte Esterase (Auto) Small (Negative) Urine RBC 6-10 /HPF (0-2) Urine WBC 1-4 /HPF (0-4) Urine Squamous Epithelial Cells Occ /LPF Urine Bacteria Few /HPF (0-FEW) Urine Mucus Slight /LPF Urine Opiates Screen Neg (NEG) Urine Methadone Screen Neg (NEG) Urine Barbiturates Neg (NEG) Urine Phencyclidine Screen Neg (NEG) Urine Amphetamine/Methamphetamine Neg (NEG) Urine Benzodiazepines Screen Neg (NEG) Urine Cocaine Screen Neg (NEG) Urine Cannabinoids Screen Neg (NEG) Urine Ethyl Alcohol Neg (NEG) Troponin I High Sensitivity 15 ng/L (4-50) Medications Active Scripts Medications Dose Route/Sig Max Daily Dose Days Date Category Dose Instructions Tamoxifen Citrate 20 Mg Tablet 1 Tab PO DAILY 30 12/06/21 Reported Levsin (Hyoscyamine Sulfate) 0.125 Mg Tablet 1 Tab SL Q4HRS 20 12/06/21 Reported Lidocaine PATCH (Lidocaine) 1 Each Adh..patch 2 Each TP DAILY 12/06/21 Reported REMOVE AFTER 12 HOURS Colace (Docusate Sodium) 100 Mg Capsule 1 Cap PO BID 30 12/06/21 Reported Milk Of Magnesia (Magnesium Hydroxide) 2,400 Mg/10 Ml Oral.susp 50 Ml PO PRN DAILY PRN 12/06/21 Reported Xarelto (Rivaroxaban) 20 Mg Tablet 1 Tab PO DAILY 30 12/06/21 Reported with food Metoprolol Tartrate 50 Mg Tablet 1 Tab PO BID 12/06/21 Reported Tylenol (Acetaminophen) 325 Mg Tablet 1-2 Tab PO PRN Q4HRS 12/06/21 Reported Amiodarone Hcl 200 Mg Tablet 1 Tab PO DAILY 12/06/21 Reported Impression . Full consult to be dictated Reviewed CT chest Residual changes from recent pneumonia with respiratory status appears to be compensated No parapneumonic effusion, patient hospitalized at [facility] additional work-up required now Pleural fluid too small to proceed with thoracentesis, in addition I think this is residual changes from previous empyema No need for antibiotics ALYSHA NAVARRETE MD December 07, 2021 11:57
[2021-12-07 12:07] LABS: CHOLESTEROL/HDL RATIO 4.8
--- NOTE | 2021-12-07 13:00 | NUR ---
Patient has declined Lasix, relating that she is not supposed to take diuretics because it make her lymph fluid thicker, thereby makes lymphedema worse. Has declined having new peripheral line placed, relating that if she had to have one, that she would like a midline. Dr Hood has been informed. Cardiology informed that patient did not want to take lasix.
[2021-12-07] MEDS ORDERED: hydrALAZINE 20 MG/ML VIAL. IVP PRN (14:45)
--- NOTE | 2021-12-07 14:55 | HP ---
DATE OF SERVICE: 12/07/2021 ADMIT DATE: 12/06/2021 HISTORY OF PRESENT ILLNESS: The patient is a 76-year-old female patient, a resident at [facility]. She was brought to the Emergency Room with sudden onset of shortness of breath that started around 4:00 in the morning. According to her, has been coughing large amount of clear sputum, but her shortness of breath kept worsening and she was noted to be hypoxic and therefore, she was transferred to [facility]. She was put on CPAP and her symptoms somewhat improved at the facility and by the time she arrived to the Emergency Room, she was able to be placed on nasal cannula and was stable. She denied any chest pain. Denied any chills, rigors or fever. She was extensively investigated in the Emergency Room and has had lab work and imaging studies. Her lab work showed that she has normochromic normocytic anemia. Her prothrombin time and INR slightly elevated. Her chemistry showed a serum sodium of 143, potassium 3.6. Her first set of troponin I high sensitivity was 17 and beta natriuretic peptide was 1081. Her chest x-ray showed that the patient has moderate right side pleural effusion with right adjacent basilar consolidation, likely compressive atelectasis. She has cardiomegaly with pulmonary vascular congestion. The patient was treated with IV Lasix and was admitted to do two more sets of cardiac enzyme and consult the Cardiology team. PAST MEDICAL HISTORY: Significant for atrial fibrillation, congestive heart failure, hypertension, aortic stenosis, mitral and tricuspid valve insufficiency. She does have chronic constipation, anemia. 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 She is also known to have type 2 diabetes. PAST SURGICAL HISTORY: Significant for appendectomy, cholecystectomy, tonsillectomy. She also had hysterectomy, lumpectomy and chest tube placement. FAMILY HISTORY: Significant for the fact that her mother had a stroke. SOCIAL HISTORY: She lives alone and moved recently to a jail facility. She does not smoke, drink alcohol or use any drugs. 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 ALLERGIES: SHE IS ALLERGIC TO PARTH INHIBITOR, CIPROFLOXACIN, DIGOXIN, ERYTHROMYCIN AND OLMESARTAN. MEDICATIONS: She is currently on the following medications: She is on Levsin 0.125 mg sublingually every 4 hours, rivaroxaban 20 mg once a day, amiodarone 200 mg once a day, metoprolol tartrate 50 mg twice a day, Tylenol 650 mg every 4-6 hours, Colace 100 mg twice a day, milk of magnesia 30 mL p.o. daily p.r.n. for constipation and tamoxifen citrate 20 mg once a day and Lidoderm patches two patches topically on for 12 hours, off for 12 hours. PHYSICAL EXAMINATION: GENERAL: On arrival to the Emergency Room, the patient was clearly tachypneic and hypoxic. VITAL SIGNS: Her heart rate was 72, blood pressure 170/78, temperature 98.1, respiratory rate 24, and oxygen saturation was 99% on 2 liters of oxygen. HEAD, EYES, EARS, NOSE, AND THROAT: Showed normocephalic, atraumatic. NECK: Supple. HEART: Showed normal first and second heart sounds. No gallop, rub or murmur. CHEST: Chest shows central trachea, equal bilateral expansion, air entry, vesicular breath sounds. No crepitation or rhonchi anteriorly, has dull percussion noted and absent breath sounds on the right side posteriorly. ABDOMEN: Distended, soft, nontender, no guarding or rigidity. No organomegaly. All hernial orifice intact. Bowel sounds normal. NEUROLOGIC: She was alert, oriented x 3 with normal motor and sensory function. No focal deficit. She has urinary incontinence and she has an indwelling Kolb catheter.. LABORATORY DATA: On arrival showed a white cell count of 7.1, hemoglobin 11, hematocrit 33, MCV 96 and platelet count of 351,000 with normal manual differential. Her chemistry showed a serum sodium 143, potassium 3.6, chloride 107, bicarbonate 28, anion gap of 8, BUN 12, creatinine 0.8. Estimated GFR was 69 mL per minute. Her glucose 145, calcium was 8.9. Magnesium 1.9. Total bilirubin, AST, ALT, alkaline phosphatase were normal. Her beta natriuretic peptide was 1081. Total protein 6.4, albumin was 2.6, prothrombin time was 16.2, INR 1.3 and urinalysis essentially unremarkable. Toxic screen was negative and her chest x-ray showed moderate right side pleural effusion with right adjacent basilar consolidation, likely compressive atelectasis, has cardiomegaly and pulmonary vascular congestion. ASSESSMENT AND PLAN: The patient was admitted with: 1. Acute on chronic diastolic congestive heart failure. 2. Acute hypoxic respiratory failure due to persistent right-sided pleural effusion, congestive heart failure and probably obstructive sleep apnea. 3. Paroxysmal atrial fibrillation, maintaining heart rate. The patient was on hospice that she . 4. Hypertension. 5. History of breast and uterine cancer. 6. History of diabetes mellitus. 7. Valvular insufficiency with moderate aortic stenosis. 8. Persistent right pleural effusion. 9. Obesity and debility. 10. Chronic lymphedema with left shoulder and left lerma wound. 11. History of pulmonary hypertension. PLAN: Continue with Lasix. Continue with amiodarone for rhythm disturbance. Continue with Xarelto for stroke prevention. We did consult the Cardiology team and the household chores to assist with her management. NESS DR: Elan TID: [id number]
[2021-12-07] MEDS ORDERED: cloNIDine TTS-2 1 PATCH PATCH TD SCH (15:00)
[2021-12-07 15:23] VITALS: BP 166/67
[2021-12-07 15:25] VITALS: BP 156/70
--- NOTE | 2021-12-07 16:05 | NUR ---
SS following for discharge planning. SS reviewed pt chart and discussed with pt RN. Pt is skilled rehabilitation resident from [facility], ; fax [phone]. Cardiology and Pulmonology following. Pt is currently on room air. PT/OT ordered. Pt not wanting to return to [facility] and is requesting referral to [facility], ; fax [phone]. Currently awaiting PT/OT notes at this time. SS will continue to follow for discharge planning.
[2021-12-07] MEDS: RIVAROXABAN 10 MG TABLET. PO SCH (19:09)
[2021-12-07 19:18] VITALS: BP 144/66
[2021-12-07 22:38] VITALS: BP 189/84
--- NOTE | 2021-12-07 23:26 | PN ---
DATE: 12/07/2021 SUBJECTIVE: The patient is resting, slightly propped up in bed, in no apparent distress. She denied any chest pain. No more shortness of breath, cough or phlegm. Her chest x-ray showed that she has moderate right-sided pleural effusion with right adjacent basilar consolidation, likely compressive atelectasis. She does have cardiomegaly and pulmonary vascular congestion. She was treated with IV Lasix and did well. PHYSICAL EXAMINATION: GENERAL: When I examined her this afternoon, she was sitting, propped up comfortably, in no apparent respiratory distress. She is pale, not jaundiced or cyanosed, no lymphadenopathy, no thyromegaly, no jugular venous distention. Mild bilateral lower limb edema. VITAL SIGNS: Her heart rate was 58, blood pressure was 222/84, temperature was 99.1, respiratory rate was 19 and oxygen saturation was 93% on room air. HEAD, EYES, EARS, NOSE AND THROAT: Normocephalic, atraumatic. NECK: Supple. HEART: Showed normal first and second heart sounds. No gallop, rub or murmur. CHEST: Clear to auscultation, no crepitation or rhonchi. ABDOMEN: Distended, soft. NEUROLOGIC: She is awake, alert, responding appropriately. She is blind in her left eye. Otherwise, all cranial nerves are intact. She moves all extremities without difficulty. She has an indwelling Kolb catheter. LABORATORY DATA: Her fasting lipid profile showed serum triglycerides of 83, total cholesterol 186, LDL was 130, VLDL was 17, HDL was 39, the ratio was 4.8. ASSESSMENT: 1. Acute on chronic diastolic congestive heart failure. 2. Acute hypoxic respiratory failure due to persistent right-sided pleural effusion and congestive heart failure and probably superimposed on obstructive sleep apnea. Surprisingly, her right side pleural effusion has accumulated quickly as I did a CT scan of the chest on the 6th of this month and there was a small right side pleural effusion. The patient is known to have paroxysmal atrial fibrillation, hypertension, type 2 diabetes mellitus. She has moderate aortic stenosis and mitral and tricuspid regurgitation, chronic bilateral lower extremity lymphedema, history of pulmonary hypertension, history of breast and endometrial carcinoma. PLAN: Continue all her home medications and I will add clonidine patch. I will repeat all her labs tomorrow. KADEN/JERRY DR: KADEN/bushra TID: [id number]
[2021-12-08 00:38] LABS: HEMOGLOBIN A1C 4.9 % (4.8-5.6)
[2021-12-08 02:09] VITALS: BP 182/81
--- NOTE | 2021-12-08 05:49 | NUR ---
Pt refusing to have another IV placed and refusing any PRN medications for elevated BPs. Pt has been rude with and yelling at the staff all throughout the shift. Pt also refusing to leave O2 on.
[2021-12-08 07:00] VITALS: BP 186/79
[2021-12-08 07:51] LABS: ALBUMIN 2.4 g/dL (3.4-5.0); ALBUMIN/GLOBULIN RATIO 0.6 (1.0-1.7); CALCIUM 8.4 mg/dL (8.5-10.1); CREATININE 0.8 mg/dL (0.6-1.0); GFR 69.6; POTASSIUM 3.5 mmol/L (3.5-5.1); TOTAL BILIRUBIN 0.2 mg/dL (0.2-1.0); TOTAL PROTEIN 6.5 g/dL (6.4-8.2)
[2021-12-08] MEDS: LIDOCAINE (700MG/PATCH) PATCH. TP SCH (09:00)
[2021-12-08] MEDS: DOCUSATE SODIUM 100 MG CAPSULE. PO SCH ×2 (09:00→20:30)
[2021-12-08] MEDS: TAMOXIFEN 10 MG TABLET PO SCH (09:00)
--- NOTE | 2021-12-08 09:04 | PDOC ---
PULMONARY PROGRESS NOTES DATE: 12/08/21 TIME: 09:03 Subjective Patient feels better, less short of air at times cough is productive Unable to sleep Had CPAP once at home Vitals Vital Signs Date Time Temp Pulse Resp B/P (MAP) Pulse Ox O2 Delivery O2 Flow Rate FiO2 12/08/21 07:00 97.7 54 17 186/79 (114) 98 Nasal Cannula 2.0 97.7 ROS: No Nausea, No Chest Pain, No Abdominal Pain, No Increase Cough General: Alert Lungs: Clear, Crackles Cardiovascular: S1, S2 Abdomen: Soft Neuro Exam: Alert Extremities: Other Skin: Warm (Edema) Labs Laboratory Tests Test 12/06/21 09:50 12/06/21 17:30 12/07/21 07:25 12/08/21 06:55 White Blood Count 7.1 x10^3/uL (4.0-11.0) Red Blood Count 3.50 x10^6/uL (3.50-5.40) Hemoglobin 10.9 g/dL (12.0-15.5) Hematocrit 33.5 % (36.0-47.0) Mean Corpuscular Volume 96 fL (79-100) Mean Corpuscular Hemoglobin 31 pg (25-35) Mean Corpuscular Hemoglobin Concent 32 g/dL (31-37) Red Cell Distribution Width 14.2 % (11.5-14.5) Platelet Count 351 x10^3/uL (140-400) Neutrophils (%) (Auto) 74 % (31-73) Lymphocytes (%) (Auto) 16 % (24-48) Monocytes (%) (Auto) 6 % (0-9) Eosinophils (%) (Auto) 3 % (0-3) Basophils (%) (Auto) 1 % (0-3) Neutrophils # (Auto) 5.2 x10^3/uL (1.8-7.7) Lymphocytes # (Auto) 1.1 x10^3/uL (1.0-4.8) Monocytes # (Auto) 0.5 x10^3/uL (0.0-1.1) Eosinophils # (Auto) 0.2 x10^3/uL (0.0-0.7) Basophils # (Auto) 0.1 x10^3/uL (0.0-0.2) Prothrombin Time 16.2 SEC (11.7-14.0) Prothromb Time International Ratio 1.3 (0.8-1.1) Sodium Level 143 mmol/L (136-145) 143 mmol/L (136-145) 143 mmol/L (136-145) Potassium Level 3.6 mmol/L (3.5-5.1) 3.4 mmol/L (3.5-5.1) 3.5 mmol/L (3.5-5.1) Chloride Level 107 mmol/L (98-107) 107 mmol/L (98-107) 107 mmol/L (98-107) Carbon Dioxide Level 28 mmol/L (21-32) 27 mmol/L (21-32) 29 mmol/L (21-32) Anion Gap 8 (6-14) 9 (6-14) 7 (6-14) Blood Urea Nitrogen 12 mg/dL (7-20) 12 mg/dL (7-20) 12 mg/dL (7-20) Creatinine 0.8 mg/dL (0.6-1.0) 0.8 mg/dL (0.6-1.0) 0.8 mg/dL (0.6-1.0) Estimated GFR (Cockcroft-Gault) 69.6 69.6 69.6 BUN/Creatinine Ratio 15 (6-20) 15 (6-20) Glucose Level 145 mg/dL (70-99) 120 mg/dL (70-99) 128 mg/dL (70-99) Calcium Level 8.9 mg/dL (8.5-10.1) 8.6 mg/dL (8.5-10.1) 8.4 mg/dL (8.5-10.1) Magnesium Level 1.9 mg/dL (1.8-2.4) 1.9 mg/dL (1.8-2.4) Total Bilirubin 0.2 mg/dL (0.2-1.0) 0.2 mg/dL (0.2-1.0) Aspartate Amino Transf (AST/SGOT) 27 U/L (15-37) 20 U/L (15-37) Alanine Aminotransferase (ALT/SGPT) 46 U/L (14-59) 32 U/L (14-59) Alkaline Phosphatase 97 U/L (46-116) 81 U/L (46-116) Troponin I High Sensitivity 17 ng/L (4-50) 15 ng/L (4-50) IJ-Ohe-D-Type Natriuretic Peptide 1081 pg/mL (0-449) Total Protein 6.4 g/dL (6.4-8.2) 6.5 g/dL (6.4-8.2) Albumin 2.6 g/dL (3.4-5.0) 2.4 g/dL (3.4-5.0) Albumin/Globulin Ratio 0.7 (1.0-1.7) 0.6 (1.0-1.7) Lipase 198 U/L (73-393) Procalcitonin < 0.10 ng/mL (0.00-0.10) Thyroid Stimulating Hormone (TSH) 3.417 uIU/mL (0.358-3.74) Urine Collection Type Unknown Urine Color (Auto) Colorless Urine Turbidity Clear Urine pH (Auto) 5.0 (<5.0-8.0) Urine Specific [place] 1.006 (1.000-1.030) Urine Protein (Auto) Negative mg/dL (Negative) Urine Glucose (Auto)(UA) Negative mg/dL (Negative) Urine Ketones (Auto) Negative mg/dL (Negative) Urine Blood (Auto) Moderate (Negative) Urine Nitrite Negative (Negative) Urine Bilirubin (Auto) Negative (Negative) Urine Urobilinogen (Auto) Normal mg/dL (Normal) Urine Leukocyte Esterase (Auto) Small (Negative) Urine RBC 6-10 /HPF (0-2) Urine WBC 1-4 /HPF (0-4) Urine Squamous Epithelial Cells Occ /LPF Urine Bacteria Few /HPF (0-FEW) Urine Mucus Slight /LPF Urine Opiates Screen Neg (NEG) Urine Methadone Screen Neg (NEG) Urine Barbiturates Neg (NEG) Urine Phencyclidine Screen Neg (NEG) Urine Amphetamine/Methamphetamine Neg (NEG) Urine Benzodiazepines Screen Neg (NEG) Urine Cocaine Screen Neg (NEG) Urine Cannabinoids Screen Neg (NEG) Urine Ethyl Alcohol Neg (NEG) Hemoglobin A1c 4.9 % (4.8-5.6) Triglycerides Level 83 mg/dL (0-150) Cholesterol Level 186 mg/dL (0-200) LDL Cholesterol, Calculated 130 mg/dL (0-100) VLDL Cholesterol, Calculated 17 mg/dL (0-40) Non-HDL Cholesterol Calculated 147 mg/dL (0-129) HDL Cholesterol 39 mg/dL (40-60) Cholesterol/HDL Ratio 4.8 Laboratory Tests Test 12/08/21 06:55 Sodium Level 143 mmol/L (136-145) Potassium Level 3.5 mmol/L (3.5-5.1) Chloride Level 107 mmol/L (98-107) Carbon Dioxide Level 29 mmol/L (21-32) Anion Gap 7 (6-14) Blood Urea Nitrogen 12 mg/dL (7-20) Creatinine 0.8 mg/dL (0.6-1.0) Estimated GFR (Cockcroft-Gault) 69.6 BUN/Creatinine Ratio 15 (6-20) Glucose Level 128 mg/dL (70-99) Calcium Level 8.4 mg/dL (8.5-10.1) Total Bilirubin 0.2 mg/dL (0.2-1.0) Aspartate Amino Transf (AST/SGOT) 20 U/L (15-37) Alanine Aminotransferase (ALT/SGPT) 32 U/L (14-59) Alkaline Phosphatase 81 U/L (46-116) Total Protein 6.5 g/dL (6.4-8.2) Albumin 2.4 g/dL (3.4-5.0) Albumin/Globulin Ratio 0.6 (1.0-1.7) Medications Active Scripts Medications Dose Route/Sig Max Daily Dose Days Date Category Dose Instructions Tamoxifen Citrate 20 Mg Tablet 1 Tab PO DAILY 30 12/06/21 Reported Levsin (Hyoscyamine Sulfate) 0.125 Mg Tablet 1 Tab SL Q4HRS 20 12/06/21 Reported Lidocaine PATCH (Lidocaine) 1 Each Adh..patch 2 Each TP DAILY 12/06/21 Reported REMOVE AFTER 12 HOURS Colace (Docusate Sodium) 100 Mg Capsule 1 Cap PO BID 30 12/06/21 Reported Milk Of Magnesia (Magnesium Hydroxide) 2,400 Mg/10 Ml Oral.susp 50 Ml PO PRN DAILY PRN 12/06/21 Reported Xarelto (Rivaroxaban) 20 Mg Tablet 1 Tab PO DAILY 30 12/06/21 Reported with food Metoprolol Tartrate 50 Mg Tablet 1 Tab PO BID 12/06/21 Reported Tylenol (Acetaminophen) 325 Mg Tablet 1-2 Tab PO PRN Q4HRS 12/06/21 Reported Amiodarone Hcl 200 Mg Tablet 1 Tab PO DAILY 12/06/21 Reported Impression . IMPRESSION: 1. Acute hypoxemic respiratory failure, multifactorial, suspect mainly due to acute on chronic systolic, diastolic heart failure. 2. Residual small pleural effusion partly loculated secondary to recent pneumonia with treatment for empyema, status post chest tube placement. 3. Valvular heart disease. 4. Critical care myopathy. 5. Paroxysmal atrial fibrillation. 6. Hypertension. 7. Uterine and breast cancer. 8. Type 2 diabetes. 9. Moderate aortic stenosis. 10. Chronic lymphedema and lower extremity cellulitis. 11. History of secondary pulmonary hypertension. 12. Obstructive sleep apnea DISCUSSION: I reviewed this current chest x-ray and previous CT of the chest. Not enough fluid to warrant a thoracentesis. The patient is relatively not very short of breath. Her shortness of breath upon admission was related to diastolic heart failure. I do not recommend any surgical intervention such as decortication at this time. Plan . Updated 12/08 Patient improving Will initiate CPAP at 10 cm of water pressure Continue current support 519 PLAN: 1. Continue optimizing cardiac medications, IV Lasix. 2. Continue amiodarone. 3. Continue anticoagulation. 4. Social Service to evaluate for possible acute rehab, not sure if the patient qualifies. 5. Continue oxygen supplementation. 6. No need for antibiotics. I do appreciate the privilege in sharing in the patient's care. ALYSHA NAVARRETE MD December 08, 2021 09:04
[2021-12-08] MEDS: AMIODARONE HCL 200 MG TABLET. PO SCH (09:25)
[2021-12-08] MEDS: METOPROLOL TART IMMED RELEASE 50 MG TABLET. PO SCH ×2 (09:25→20:30)
[2021-12-08 09:35] LABS: HEMATOCRIT 32.3 % (36.0-47.0); HEMOGLOBIN 10.6 g/dL (12.0-15.5); RED BLOOD COUNT 3.39 x10^6/uL (3.50-5.40); RED CELL DISTRIBUTION WIDTH 14.4 % (11.5-14.5); WHITE BLOOD COUNT 5.8 x10^3/uL (4.0-11.0)
--- NOTE | 2021-12-08 10:32 | CONS ---
DATE OF CONSULTATION: 12/08/2021 ATTENDING PHYSICIAN: Benjamin Hood MD CONSULTING PHYSICIAN: Heladio Bennett MD REASON FOR CONSULTATION: The patient is seen in pulmonary consultation at the request of the Cardiology Service for an effusion. HISTORY OF PRESENT ILLNESS: The patient is a 76-year-old that was admitted at [facility] in September. She was critically ill at that time and was treated for an empyema, had a chest tube placed. She spent some time in the ICU. She was eventually transferred to a residential facility. She represented to the Emergency Department with shortness of breath. She has a history of chronic heart failure. She was also found to have low O2 saturation. She was placed on CPAP. Her O2 sats improved. She was admitted. Cardiology was consulted. They saw her in consultation, recommended IV Lasix, continued oxygen supplementation and consulted me for an abnormal CT chest. I personally reviewed the chest x-ray, which revealed a right-sided pleural effusion with adjacent consolidation. I also reviewed a scan of the chest, which revealed what appears to be some chronic changes in the right lung from previous parapneumonic effusion and empyema, status post chest tube placement. There was not enough free fluid there for thoracentesis. The patient is actually not very short of breath. She denies fever, chills or night sweats. PAST MEDICAL HISTORY: Chronic heart failure, chronic AFib, hypertension, aortic stenosis, valvular insufficiency, both mitral regurg and tricuspid regurg. She has had recent admission at [facility] for pneumonia with a parapneumonic effusion. She was septic at that time. There is a history of constipation, uterine cancer, breast cancer, diabetes. PAST SURGICAL HISTORY: Status post appendectomy, cholecystectomy, tonsillectomy, hysterectomy. She has had previous lumpectomy. She is also status post chest tube placement as indicated above. FAMILY HISTORY: Stroke on the maternal side. SOCIAL HISTORY: She currently resides at a facility. Denies any alcohol or tobacco use. CURRENT MEDICATIONS: List was reviewed. ALLERGIES: SHE HAS MULTIPLE ALLERGIES INCLUDING PARTH INHIBITORS, CIPROFLOXACIN, DIGOXIN, ERYTHROMYCIN AND OLMESARTAN. PHYSICAL EXAMINATION: GENERAL: The patient appeared to be of stated age. She was in no respiratory distress, currently on 2 liters of oxygen supplementation. HEENT: Eyes: The sclerae were nonicteric. NECK: Jugular venous distention could not be assessed secondary to body habitus. CHEST: Full expansion. LUNGS: Diminished breath sounds in the right base. No wheezes. CARDIOVASCULAR: Regular rate and rhythm with S1, S2, no S3. ABDOMEN: Soft, obese. EXTREMITIES: No clubbing or cyanosis. Evidence of chronic lymphedema, some erythema over the lower extremities. NEUROLOGIC: The patient was awake, alert, following command. She was very weak. She was barely able to lift the right and left legs off the bed upon command. She states that she is unable to stand on her feet. LABORATORY DATA: Urine toxicology screen was negative. UA showed 1-4 wbc's. Electrolytes were normal. BUN and creatinine were normal. Albumin was low. White count was normal, hemoglobin and hematocrit were likewise normal. IMAGING DATA: CT and chest x-ray reviewed. IMPRESSION: 1. Acute hypoxemic respiratory failure, multifactorial, suspect mainly due to acute on chronic systolic, diastolic heart failure. 2. Residual small pleural effusion partly loculated secondary to recent pneumonia with treatment for empyema, status post chest tube placement. 3. Valvular heart disease. 4. Critical care myopathy. 5. Paroxysmal atrial fibrillation. 6. Hypertension. 7. Uterine and breast cancer. 8. Type 2 diabetes. 9. Moderate aortic stenosis. 10. Chronic lymphedema and lower extremity cellulitis. 11. History of secondary pulmonary hypertension. DISCUSSION: I reviewed this current chest x-ray and previous CT of the chest. Not enough fluid to warrant a thoracentesis. The patient is relatively not very short of breath. Her shortness of breath upon admission was related to diastolic heart failure. I do not recommend any surgical intervention such as decortication at this time. PLAN: 1. Continue optimizing cardiac medications, IV Lasix. 2. Continue amiodarone. 3. Continue anticoagulation. 4. Social Service to evaluate for possible acute rehab, not sure if the patient qualifies. 5. Continue oxygen supplementation. 6. No need for antibiotics. I do appreciate the privilege in sharing in the patient's care. NASIR CONRAD: Xavier TID: [id number]
[2021-12-08 11:00] VITALS: BP 174/75
[2021-12-08] MEDS ORDERED: cloNIDine TTS-3 1 PATCH PATCH.TDWK TD SCH (12:00)
[2021-12-08] MEDS ORDERED: POTASSIUM CHLORIDE 20 MEQ TABLET.ER. PO ONE (12:15)
--- NOTE | 2021-12-08 12:15 | PDOC ---
HAZEL CHAVEZ BUS SYSTEM OPERATOR 12/08/21 1215: CARDIO Progress Notes Date and Time Date of Service 12/08/2021 Time of Evaluation 1145 Subjective Subjective: No Chest Pain, No shortness of breath, No Palpitations Vitals Vitals Vital Signs Date Time Temp Pulse Resp B/P (MAP) Pulse Ox O2 Delivery O2 Flow Rate FiO2 12/08/21 09:25 72 186/79 12/08/21 08:00 Nasal Cannula 2.0 12/08/21 07:00 97.7 17 98 97.7 Weight Weight [ ] Input and Output Intake and Output Intake and Output 12/08/21 07:00 Intake Total 100 ml Output Total 500 ml Balance -400 ml Intake Oral 100 ml Output Urine Total 500 ml # Voids 2 Laboratory Labs Laboratory Tests Test 12/08/21 06:55 White Blood Count 5.8 x10^3/uL (4.0-11.0) Red Blood Count 3.39 x10^6/uL (3.50-5.40) Hemoglobin 10.6 g/dL (12.0-15.5) Hematocrit 32.3 % (36.0-47.0) Mean Corpuscular Volume 96 fL (79-100) Mean Corpuscular Hemoglobin 31 pg (25-35) Mean Corpuscular Hemoglobin Concent 33 g/dL (31-37) Red Cell Distribution Width 14.4 % (11.5-14.5) Platelet Count 312 x10^3/uL (140-400) Sodium Level 143 mmol/L (136-145) Potassium Level 3.5 mmol/L (3.5-5.1) Chloride Level 107 mmol/L (98-107) Carbon Dioxide Level 29 mmol/L (21-32) Anion Gap 7 (6-14) Blood Urea Nitrogen 12 mg/dL (7-20) Creatinine 0.8 mg/dL (0.6-1.0) Estimated GFR (Cockcroft-Gault) 69.6 BUN/Creatinine Ratio 15 (6-20) Glucose Level 128 mg/dL (70-99) Calcium Level 8.4 mg/dL (8.5-10.1) Total Bilirubin 0.2 mg/dL (0.2-1.0) Aspartate Amino Transf (AST/SGOT) 20 U/L (15-37) Alanine Aminotransferase (ALT/SGPT) 32 U/L (14-59) Alkaline Phosphatase 81 U/L (46-116) Total Protein 6.5 g/dL (6.4-8.2) Albumin 2.4 g/dL (3.4-5.0) Albumin/Globulin Ratio 0.6 (1.0-1.7) Microbiology Micro Microbiology 12/06/21 Urine Culture - Final, Complete Physical Exam HEENT: Neck Supple W Full Motion Chest: Symmetric LUNGS: Other (Diminished bases) Heart: RRR (SR/SB) Abdomen: Soft N/T Extremities: No Calf Tenderness, Other (1+ bilateral LE pitting edema) Neurology: alert, oriented, follow commands Assessment Assessment 1. Acute on chronic diastolic CHF: better compensated. Potential triggers are uncontrolled HTN and sleep apnea 2. Acute hypoxic respiratory failure: persisted right pleural effusion and CHF with suspected uncontrolled TAMEKA 2. PAFIB: Maintaining SR 3. Prior hospice: revoked 4. HTN: labile 5. Hx of breast and uterine CA 6. Hx of DM2 7. Valvular insufficiency: Moderate 8. Persistent right pleural effusion: was considered for decortication at [facility] 9. Obesity and Debility 10. Chronic lymphedema with left lerma wound 11. Hx of Pulmonary HTN Recommendations 1. Oral Lasix therapy and K replacement 2. Will need TAMEKA workup 3. Continue amiodarone for rhythm maintenance. Continue metoprolol. Xarelto for stroke prevention. If continues to have bradycardia episodes (lowest mid40s) may consider alternative to clonidine 4. start norvasc 5. She does not want to go back to [facility], she will need outpt cardiology referral near [place] as she lives close to that area eventually. While she is continue to reside at [facility] home whe will follow up with Dr. Grady, follow up on January 11 at 9:45 AM. A stress test will be arranged as an outpt to further risk stratification given her significant cardiac risk factors. Justicifation of Admission Dx: Justifications for Admission: Justification of Admission Dx: Yes SHAKIRA GRADY MD 12/08/21 1720: CARDIO Progress Notes Assessment Assessment Patient seen and examined. Agree with COUNSELOR DORMITORY's assessment and plan. Acute on chr diastolic HF better compensated PAF maintaining SR Continue amiodarone for rhythm maintenance and xarelto for stroke prophylaxis Recent 2D echo showed LVEF 65% Consider ischemic evaluation as outpatient HAZEL CHAVEZ APRN December 08, 2021 12:15 SHAKIRA GRADY MD December 08, 2021 17:20
[2021-12-08] MEDS ORDERED: cloNIDine TTS-1 1 PATCH PATCH.TDWK TD SCH (13:00)
--- NOTE | 2021-12-08 13:48 | NUR ---
SS following up with discharge planning. SS reviewed pt chart and discussed with pt RN. Pt is skilled rehabilitation resident from [facility], ; fax [phone]. Pt is currently on room air. PT/OT ordered. Pt not wanting to return to [facility] and is requesting referral to [facility], ; fax [phone]. Currently awaiting PT/OT notes at this time. SS will continue to follow for discharge planning. Addendum: 12/08/21 at 1352 by BENTON ALLEN SS CORRECTION to PREVIOUS NOTE: Pt is currently requiring oxygen at two liters nasal canula ANASTASIYAN.
[2021-12-08 15:00] VITALS: BP 216/84
[2021-12-08] MEDS: RIVAROXABAN 10 MG TABLET. PO SCH (16:48)
[2021-12-08 19:15] VITALS: BP 163/76
[2021-12-08] MEDS: traZODone 50 MG TABLET. PO PRN (23:02)
[2021-12-08 23:20] VITALS: BP 163/71
[2021-12-09 03:14] VITALS: BP 141/65
[2021-12-09 07:00] VITALS: BP 155/68
[2021-12-09 07:37] LABS: CALCIUM 8.4 mg/dL (8.5-10.1); CREATININE 0.8 mg/dL (0.6-1.0); GFR 69.6; POTASSIUM 4.1 mmol/L (3.5-5.1)
[2021-12-09] MEDS: DOCUSATE SODIUM 100 MG CAPSULE. PO SCH ×2 (08:54→20:57)
[2021-12-09] MEDS: POTASSIUM CHLORIDE 10 MEQ TABLET.ER. PO SCH (08:54)
[2021-12-09] MEDS: FUROSEMIDE 40 MG TABLET. PO SCH (08:54)
[2021-12-09] MEDS: TAMOXIFEN 10 MG TABLET PO SCH (08:55)
[2021-12-09] MEDS: AMIODARONE HCL 200 MG TABLET. PO SCH (08:56)
[2021-12-09] MEDS: METOPROLOL TART IMMED RELEASE 50 MG TABLET. PO SCH ×2 (08:57→20:56)
[2021-12-09] MEDS: LIDOCAINE (700MG/PATCH) PATCH. TP SCH (09:00)
--- NOTE | 2021-12-09 09:24 | PDOC ---
PROGRESS NOTES Date of Service: DATE: 12/09/21 TIME: 09:24 Subjective Subjective Dyspnea improved but currently complaining of cough Objective Objective Vital Signs Date Time Temp Pulse Resp B/P (MAP) Pulse Ox O2 Delivery O2 Flow Rate FiO2 12/09/21 09:03 60 155/68 12/09/21 07:00 98.1 17 98 Nasal Cannula 2.0 98.1 Intake and Output 12/09/21 07:00 Intake Total 855 ml Balance 855 ml Intake Oral 855 ml # Voids 2 Physical Exam Heart: Regular rate (SR), Normal S1, Normal S2, Other (S4 5/6 systolic murmur loudest to CATHERINE border) Extremities: No cyanosis, Other (2+ bilateral LE pitting edema; absent RFA) General: Alert, Oriented X3, Cooperative, No acute distress HEENT: Atraumatic, Mucous membr. moist/pink, Other (left eye prosthetic) Lungs: Other (basilar crackles) MUSCULOSKELETAL: Osteoarthritic changes both hands, Other (absent RFA) Neuro: Normal speech, Sensation intact Psych/Mental Status: Mental status NL, Mood NL Skin: Other (left lerma wound with pink erythema to site) Assessment Assessment 1. Acute on chronic diastolic CHF: better compensated. Potential triggers are uncontrolled HTN and sleep apnea 2. Acute hypoxic respiratory failure: persisted right pleural effusion and CHF with suspected uncontrolled TAMEKA 2. PAFIB: Maintaining SR 3. Prior hospice: revoked 4. HTN: labile but better controlled 5. Hx of breast and uterine CA 6. Hx of DM2 7. Valvular insufficiency: Moderate 8. Persistent right pleural effusion: was considered for decortication at [facility] 9. Obesity and Debility 10. Chronic lymphedema with left lerma wound 11. Hx of Pulmonary HTN Recommendations 1. Oral Lasix therapy and K replacement 2. Will need TAMEKA workup 3. Continue amiodarone for rhythm maintenance. Continue metoprolol. Xarelto for stroke prevention. If continues to have bradycardia episodes (lowest mid40s) may consider alternative to clonidine 4. She does not want to go back to [facility], she will need outpt cardiology referral near [place] as she lives close to that area eventually. While she continues to reside at [facility] home she will follow up with our office. A stress test will be arranged as an outpt to further risk stratification given her significant cardiac risk factors. Plan Plan of Care Problems Medical Problems: (1) Acute exacerbation of CHF (congestive heart failure) Status: Acute (2) Hypoxia Status: Acute Comment Review of Relevant I have reviewed the following items will (where applicable) has been applied. Labs Laboratory Tests Test 12/09/21 06:40 Sodium Level 144 mmol/L (136-145) Potassium Level 4.1 mmol/L (3.5-5.1) Chloride Level 109 mmol/L (98-107) Carbon Dioxide Level 29 mmol/L (21-32) Anion Gap 6 (6-14) Blood Urea Nitrogen 15 mg/dL (7-20) Creatinine 0.8 mg/dL (0.6-1.0) Estimated GFR (Cockcroft-Gault) 69.6 Glucose Level 144 mg/dL (70-99) Calcium Level 8.4 mg/dL (8.5-10.1) BE-Nbt-Y-Type Natriuretic Peptide 1181 pg/mL (0-449) Microbiology 12/06/21 Urine Culture - Final, Complete Medications Current Medications Amlodipine Besylate (Norvasc) 10 mg 1X ONCE PO Last administered on 12/08/21at 12:53; Start 12/08/21 at 12:15; Stop 12/08/21 at 12:23; Status DC Amlodipine Besylate (Norvasc) 10 mg DAILY PO Last administered on 12/09/21at 09:03; Start 12/09/21 at 09:00 Clonidine HCl (Catapres Tts-1) 1 patch WEEKLY TD Last administered on 12/08/21at 12:59; Start 12/08/21 at 13:00 Clonidine HCl (Catapres Tts-3) 1 patch WEEKLY TD ; Start 12/08/21 at 12:00; S top 12/08/21 at 12:17; Status DC Furosemide (Lasix) 40 mg DAILY PO Last administered on 12/09/21at 08:54; Start 12/09/21 at 09:00 Potassium Chloride (Klor-Con) 10 meq [id number] PO Last administered on 12/09/21at 08:54; Start 12/09/21 at 08:00 Potassium Chloride (Klor-Con) 20 meq 1X ONCE PO Last administered on 12/08/21at 12:52; Start 12/08/21 at 12:15; Stop 12/08/21 at 12:23; Status DC Vitals/I & O Vital Sign - Last 24 Hours 12/08/21 12/08/21 12/08/21 12/08/21 09:25 09:25 11:00 12:53 Temp 98.1 98.1 Pulse 65 72 60 60 Resp 17 B/P (MAP) 186/79 186/79 174/75 (108) 197/114 Pulse Ox 93 O2 Delivery Nasal Cannula O2 Flow Rate 2.0 12/08/21 12/08/21 12/08/21 12/08/21 15:00 19:15 19:34 20:20 Temp 97.8 98.3 97.8 98.3 Pulse 58 67 Resp 17 21 B/P (MAP) 216/84 (128) 163/76 (105) Pulse Ox 96 87 93 O2 Delivery Nasal Cannula Room Air Nasal Cannula Nasal Cannula O2 Flow Rate 2.0 2.0 2.0 2.0 12/08/21 12/08/21 12/09/21 12/09/21 20:30 23:20 03:14 07:00 Temp 98.1 98.1 98.1 98.1 98.1 98.1 Pulse 67 55 71 50 Resp 17 B/P (MAP) 163/76 163/71 (101) 141/65 (90) 155/68 (97) Pulse Ox 99 98 98 O2 Delivery Nasal Cannula Nasal Cannula Nasal Cannula O2 Flow Rate 2.0 2.0 2.0 12/09/21 12/09/21 12/09/21 08:56 08:57 09:03 Pulse 58 58 60 B/P (MAP) 155/68 155/68 155/68 Intake and Output 12/08/21 12/08/21 12/09/21 15:00 23:00 07:00 Intake Total 300 ml 375 ml 180 ml Balance 300 ml 375 ml 180 ml SHAKIRA GRADY MD December 09, 2021 09:24
--- NOTE | 2021-12-09 10:50 | RAD ---
EXAMINATION: XR CHEST 1V CLINICAL HISTORY: Worsening shortness of breath. COMPARISON: 12/06/2021 FINDINGS/ IMPRESSION: No evidence of significant interval change when accounting for differences in patient positioning and imaging technique. Persistent right pleural effusion with overlying airspace disease and curvilinear opacities in the ri ght midlung zone. Electronically signed by: Marcelo Young DO (12/09/2021 10:48 AM) ANDRE
[2021-12-09 11:00] VITALS: BP 139/62
--- NOTE | 2021-12-09 11:00 | PN ---
DATE: 12/09/2021 SUBJECTIVE: The patient continued to complain of shortness of breath and recurrent bouts of cough. PHYSICAL EXAMINATION: HEAD, EYES, EARS, NOSE AND THROAT: Normocephalic, atraumatic. NECK: Supple. HEART: Showed normal first and second heart sounds. No gallop, rub or murmur. CHEST: Showed central trachea, equal bilateral chest expansion air entry, vesicular breath sounds. I could not appreciate any crepitation or rhonchi anteriorly. She has dull percussion note and absent breath sounds posteriorly. She has also diffuse scattered rhonchi. ABDOMEN: Distended, soft, nontender. NEUROLOGIC: She was blind in her left eye. Her intake and output are incompletely recorded. LABORATORY DATA: Showed a white cell count 5.8, hemoglobin 11, hematocrit 32, MCV 96 and platelet count 312,000. Her chemistry this morning showed a serum sodium 144, potassium 4.1, chloride 109, bicarbonate 29, anion gap of 6, BUN 15, creatinine 0.6. Estimated GFR was 69 mL per minute. Her glucose 144, calcium was 8.4. Total bilirubin, AST, ALT, alkaline phosphatase were normal. ASSESSMENT: 1. Acute hypoxic respiratory failure due to: A. right-sided pleural effusion. B. Congestive heart failure. C. Questionable obstructive sleep apnea. 2. Paroxysmal atrial fibrillation. 3. Hypertension. 4. Type 2 diabetes mellitus. 5. Moderate aortic stenosis. 6. Mitral and tricuspid regurgitation. 7. Chronic bilateral lower extremity lymphedema. 8. Pulmonary hypertension. 9. History of breast and endometrial carcinoma. PLAN: My plan is to continue with her current medication. I will arrange to repeat her labs and also a chest x-ray. She might require thoracentesis. DIONTE DR: Elan TID: [id number]
--- NOTE | 2021-12-09 13:37 | PDOC ---
PULMONARY PROGRESS NOTES DATE: 12/09/21 TIME: 13:34 Subjective Patient did not tolerate CPAP last night Today slightly more short of air Cough productive at times Vitals Vital Signs Date Time Temp Pulse Resp B/P (MAP) Pulse Ox O2 Delivery O2 Flow Rate FiO2 12/09/21 11:00 98.2 56 20 139/62 (87) 99 Nasal Cannula 98.2 12/09/21 08:00 2.0 ROS: No Nausea, No Chest Pain, No Abdominal Pain, No Increase Cough General: Alert Lungs: Clear, Crackles Cardiovascular: S1, S2 Abdomen: Soft Neuro Exam: Alert Extremities: Other Skin: Warm (Edema) Labs Laboratory Tests Test 12/08/21 06:55 12/09/21 06:40 White Blood Count 5.8 x10^3/uL (4.0-11.0) Red Blood Count 3.39 x10^6/uL (3.50-5.40) Hemoglobin 10.6 g/dL (12.0-15.5) Hematocrit 32.3 % (36.0-47.0) Mean Corpuscular Volume 96 fL (79-100) Mean Corpuscular Hemoglobin 31 pg (25-35) Mean Corpuscular Hemoglobin Concent 33 g/dL (31-37) Red Cell Distribution Width 14.4 % (11.5-14.5) Platelet Count 312 x10^3/uL (140-400) Sodium Level 143 mmol/L (136-145) 144 mmol/L (136-145) Potassium Level 3.5 mmol/L (3.5-5.1) 4.1 mmol/L (3.5-5.1) Chloride Level 107 mmol/L (98-107) 109 mmol/L (98-107) Carbon Dioxide Level 29 mmol/L (21-32) 29 mmol/L (21-32) Anion Gap 7 (6-14) 6 (6-14) Blood Urea Nitrogen 12 mg/dL (7-20) 15 mg/dL (7-20) Creatinine 0.8 mg/dL (0.6-1.0) 0.8 mg/dL (0.6-1.0) Estimated GFR (Cockcroft-Gault) 69.6 69.6 BUN/Creatinine Ratio 15 (6-20) Glucose Level 128 mg/dL (70-99) 144 mg/dL (70-99) Calcium Level 8.4 mg/dL (8.5-10.1) 8.4 mg/dL (8.5-10.1) Total Bilirubin 0.2 mg/dL (0.2-1.0) Aspartate Amino Transf (AST/SGOT) 20 U/L (15-37) Alanine Aminotransferase (ALT/SGPT) 32 U/L (14-59) Alkaline Phosphatase 81 U/L (46-116) Total Protein 6.5 g/dL (6.4-8.2) Albumin 2.4 g/dL (3.4-5.0) Albumin/Globulin Ratio 0.6 (1.0-1.7) SO-Szn-[id number]-Type Natriuretic Peptide 1181 pg/mL (0-449) Laboratory Tests Test 12/09/21 06:40 Sodium Level 144 mmol/L (136-145) Potassium Level 4.1 mmol/L (3.5-5.1) Chloride Level 109 mmol/L (98-107) Carbon Dioxide Level 29 mmol/L (21-32) Anion Gap 6 (6-14) Blood Urea Nitrogen 15 mg/dL (7-20) Creatinine 0.8 mg/dL (0.6-1.0) Estimated GFR (Cockcroft-Gault) 69.6 Glucose Level 144 mg/dL (70-99) Calcium Level 8.4 mg/dL (8.5-10.1) JF-Esh-[id number]-Type Natriuretic Peptide 1181 pg/mL (0-449) Medications Active Scripts Medications Dose Route/Sig Max Daily Dose Days Date Category Dose Instructions Tamoxifen Citrate 20 Mg Tablet 1 Tab PO DAILY 30 12/06/21 Reported Levsin (Hyoscyamine Sulfate) 0.125 Mg Tablet 1 Tab SL Q4HRS 12/06/21 Reported Lidocaine PATCH (Lidocaine) 1 Each Adh..patch 2 Each TP DAILY 12/06/21 Reported REMOVE AFTER 12 HOURS Colace (Docusate Sodium) 100 Mg Capsule 1 Cap PO BID 12/06/21 Reported Milk Of Magnesia (Magnesium Hydroxide) 2,400 Mg/10 Ml Oral.susp 50 Ml PO PRN DAILY PRN 12/06/21 Reported Xarelto (Rivaroxaban) 20 Mg Tablet 1 Tab PO DAILY 30 12/06/21 Reported with food Metoprolol Tartrate 50 Mg Tablet 1 Tab PO BID 12/06/21 Reported Tylenol (Acetaminophen) 325 Mg Tablet 1-2 Tab PO PRN Q4HRS 12/06/21 Reported Amiodarone Hcl 200 Mg Tablet 1 Tab PO DAILY 12/06/21 Reported Impression . IMPRESSION: 1. Acute hypoxemic respiratory failure, multifactorial, suspect mainly due to acute on chronic systolic, diastolic heart failure. 2. Residual small pleural effusion partly loculated secondary to recent pneumonia with treatment for empyema, status post chest tube placement. 3. Valvular heart disease. 4. Critical care myopathy. 5. Paroxysmal atrial fibrillation. 6. Hypertension. 7. Uterine and breast cancer. 8. Type 2 diabetes. 9. Moderate aortic stenosis. 10. Chronic lymphedema and lower extremity cellulitis. 11. History of secondary pulmonary hypertension. 12. Obstructive sleep apnea DISCUSSION: I reviewed this current chest x-ray and previous CT of the chest. Not enough fluid to warrant a thoracentesis. The patient is relatively not very short of breath. Her shortness of breath upon admission was related to diastolic heart failure. I do not recommend any surgical intervention such as decortication at this time. Plan . Updated 12/09 Patient did not tolerate CPAP last night More short of breath today with cough Add nebulized treatments Add Augmentin Continue current support ALYSHA NAVARRETE MD December 09, 2021 13:37
[2021-12-09] MEDS ORDERED: AMOXICILLIN/K CLAV 875/125MG TABLET. PO ONE (13:45)
[2021-12-09] MEDS ORDERED: ALBUTEROL SULFATE 2.5 MG/3 ML NEBU. NEB PRN (13:45)
[2021-12-09 15:31] VITALS: BP 130/97
[2021-12-09] MEDS: RIVAROXABAN 10 MG TABLET. PO SCH (17:48)
[2021-12-09 19:30] VITALS: BP 149/68
[2021-12-09] MEDS: AMOXICILLIN/K CLAV 875/125MG TABLET. PO SCH (20:57)
[2021-12-09 23:19] VITALS: BP 139/66
[2021-12-10] MEDS: traZODone 50 MG TABLET. PO PRN (00:37)
[2021-12-10 03:30] VITALS: BP 155/69
[2021-12-10 06:34] LABS: ALBUMIN 2.2 g/dL (3.4-5.0); ALBUMIN/GLOBULIN RATIO 0.6 (1.0-1.7); CALCIUM 8.5 mg/dL (8.5-10.1); CREATININE 0.8 mg/dL (0.6-1.0); GFR 69.6; POTASSIUM 4.2 mmol/L (3.5-5.1); TOTAL BILIRUBIN 0.2 mg/dL (0.2-1.0); TOTAL PROTEIN 6.2 g/dL (6.4-8.2)
[2021-12-10 06:39] VITALS: BP 148/67
[2021-12-10 07:24] LABS: BASO # 0.1 x10^3/uL (0.0-0.2); BASO % 1 % (0-3); EOS # 0.3 x10^3/uL (0.0-0.7); EOS % 4 % (0-3); HEMOGLOBIN 9.8 g/dL (12.0-15.5); LYMPH # 1.5 x10^3/uL (1.0-4.8); LYMPH % 21 % (24-48); MEAN CORPUSCULAR HEMOGLOBIN 31 pg (25-35); MEAN CORPUSCULAR HGB CONC 32 g/dL (31-37); MEAN CORPUSCULAR VOLUME 97 fL (79-100); MONO # 0.5 x10^3/uL (0.0-1.1); MONO % 7 % (0-9); NEUT # 4.8 x10^3/uL (1.8-7.7); NEUT % 68 % (31-73); PLATELET COUNT 285 x10^3/uL (140-400); RED BLOOD COUNT 3.22 x10^6/uL (3.50-5.40); RED CELL DISTRIBUTION WIDTH 14.2 % (11.5-14.5)
[2021-12-10] MEDS: LIDOCAINE (700MG/PATCH) PATCH. TP SCH (09:00)
[2021-12-10] MEDS: TAMOXIFEN 10 MG TABLET PO SCH (09:00)
[2021-12-10] MEDS: FUROSEMIDE 40 MG TABLET. PO SCH (09:00)
[2021-12-10] MEDS: DOCUSATE SODIUM 100 MG CAPSULE. PO SCH ×2 (09:00→21:08)
[2021-12-10] MEDS: POTASSIUM CHLORIDE 10 MEQ TABLET.ER. PO SCH (09:01)
[2021-12-10] MEDS: AMOXICILLIN/K CLAV 875/125MG TABLET. PO SCH ×2 (09:01→21:08)
[2021-12-10] MEDS: METOPROLOL TART IMMED RELEASE 50 MG TABLET. PO SCH ×2 (09:03→21:09)
[2021-12-10] MEDS: AMIODARONE HCL 200 MG TABLET. PO SCH (09:04)
--- NOTE | 2021-12-10 09:09 | PDOC ---
PROGRESS NOTES Date of Service: DATE: 12/10/21 TIME: 09:09 Subjective Subjective c/o cough, dyspnea improved, denied any chest pain Objective Objective Vital Signs Date Time Temp Pulse Resp B/P (MAP) Pulse Ox O2 Delivery O2 Flow Rate FiO2 12/10/21 08:40 94 Nasal Cannula 3.0 12/10/21 06:39 98.1 49 18 148/67 (94) 98.1 Intake and Output 12/10/21 07:00 Intake Total 450 ml Output Total 2700 ml Balance -2250 ml Intake Oral 450 ml Output Urine Total 2700 ml Physical Exam Heart: Regular rate (SR), Normal S1, Normal S2, Other (S4 5/6 systolic murmur loudest to CATHERINE border) Extremities: No cyanosis, Other (2+ bilateral LE pitting edema; absent RFA) General: Alert, Oriented X3, Cooperative, No acute distress HEENT: Atraumatic, Mucous membr. moist/pink, Other (left eye prosthetic) Lungs: Other (basilar crackles) MUSCULOSKELETAL: Osteoarthritic changes both hands, Other (absent RFA) Neuro: Normal speech, Sensation intact Psych/Mental Status: Mental status NL, Mood NL Skin: Other (left lerma wound with pink erythema to site) Assessment Assessment 1. Acute on chronic diastolic CHF: better compensated. Potential triggers are uncontrolled HTN and sleep apnea 2. Acute hypoxic respiratory failure: persisted right pleural effusion and CHF with suspected uncontrolled TAMEKA 2. PAFIB: Maintaining SR 3. Prior hospice: revoked 4. HTN: labile but better controlled 5. Hx of breast and uterine CA 6. Hx of DM2 7. Valvular insufficiency: Moderate 8. Persistent right pleural effusion: was considered for decortication at [facility] 9. Obesity and Debility 10. Chronic lymphedema with left lerma wound 11. Hx of Pulmonary HTN Recommendations 1. Continue p.o. Lasix 2. Follow pulmonary team recommendations 3. Continue amiodarone for rhythm maintenance. Continue metoprolol. Xarelto for stroke prevention. If continues to have bradycardia episodes (lowest mid40s) may consider alternative to clonidine 4. She does not want to go back to [facility], she will need outpt cardiology referral near [place] as she lives close to that area eventually. While she continues to reside at [facility] she will follow up with our office. A stress test will be arranged as an outpt to further risk stratification given her significant cardiac risk factors. Plan Plan of Care Problems Medical Problems: (1) Acute exacerbation of CHF (congestive heart failure) Status: Acute (2) Hypoxia Status: Acute Comment Review of Relevant I have reviewed the following items will (where applicable) has been applied. Labs Laboratory Tests Test 12/10/21 05:20 White Blood Count 7.0 x10^3/uL (4.0-11.0) Red Blood Count 3.22 x10^6/uL (3.50-5.40) Hemoglobin 9.8 g/dL (12.0-15.5) Hematocrit 31.0 % (36.0-47.0) Mean Corpuscular Volume 97 fL (79-100) Mean Corpuscular Hemoglobin 31 pg (25-35) Mean Corpuscular Hemoglobin Concent 32 g/dL (31-37) Red Cell Distribution Width 14.2 % (11.5-14.5) Platelet Count 285 x10^3/uL (140-400) Neutrophils (%) (Auto) 68 % (31-73) Lymphocytes (%) (Auto) 21 % (24-48) Monocytes (%) (Auto) 7 % (0-9) Eosinophils (%) (Auto) 4 % (0-3) Basophils (%) (Auto) 1 % (0-3) Neutrophils # (Auto) 4.8 x10^3/uL (1.8-7.7) Lymphocytes # (Auto) 1.5 x10^3/uL (1.0-4.8) Monocytes # (Auto) 0.5 x10^3/uL (0.0-1.1) Eosinophils # (Auto) 0.3 x10^3/uL (0.0-0.7) Basophils # (Auto) 0.1 x10^3/uL (0.0-0.2) Sodium Level 144 mmol/L (136-145) Potassium Level 4.2 mmol/L (3.5-5.1) Chloride Level 108 mmol/L (98-107) Carbon Dioxide Level 31 mmol/L (21-32) Anion Gap 5 (6-14) Blood Urea Nitrogen 16 mg/dL (7-20) Creatinine 0.8 mg/dL (0.6-1.0) Estimated GFR (Cockcroft-Gault) 69.6 BUN/Creatinine Ratio 20 (6-20) Glucose Level 173 mg/dL (70-99) Calcium Level 8.5 mg/dL (8.5-10.1) Total Bilirubin 0.2 mg/dL (0.2-1.0) Aspartate Amino Transf (AST/SGOT) 20 U/L (15-37) Alanine Aminotransferase (ALT/SGPT) 32 U/L (14-59) Alkaline Phosphatase 81 U/L (46-116) Total Protein 6.2 g/dL (6.4-8.2) Albumin 2.2 g/dL (3.4-5.0) Albumin/Globulin Ratio 0.6 (1.0-1.7) Microbiology 12/06/21 Urine Culture - Final, Complete Medications Current Medications Albuterol Sulfate (Ventolin Neb Soln) 2.5 mg PRN Q6HRS PRN NEB SHORTNESS OF BREATH; Start 12/09/21 at 13:45 Amoxicillin/ Clavulanate Potassium (Augmentin 875/ 125mg) 1 tab 1X ONCE PO Last administered on 12/09/21at 15:21; Start 12/09/21 at 13:45; Stop 12/09/21 at 13:46; Status DC Amoxicillin/ Clavulanate Potassium (Augmentin 875/ 125mg) 1 tab BID PO Last administered on 12/09/21at 20:57; Start 12/09/21 at 21:00 Vitals/I & O Vital Sign - Last 24 Hours 12/09/21 12/09/21 12/09/21 12/09/21 11:00 15:31 19:30 20:21 Temp 98.2 98.8 97.8 98.2 98.8 97.8 Pulse 56 56 54 Resp 19 B/P (MAP) 139/62 (87) 130/97 (108) 149/68 (95) Pulse Ox 99 96 100 O2 Delivery Nasal Cannula Nasal Cannula Nasal Cannula O2 Flow Rate 2.0 2.0 12/09/21 12/09/21 12/10/21 12/10/21 20:56 23:19 03:30 06:39 Temp 98.0 97.7 98.1 98.0 97.7 98.1 Pulse 54 57 61 49 Resp B/P (MAP) 149/68 139/66 (90) 155/69 (97) 148/67 (94) Pulse Ox 93 97 97 O2 Delivery Room Air Nasal Cannula Nasal Cannula O2 Flow Rate 2.0 2.0 12/10/21 08:40 Pulse Ox 94 O2 Delivery Nasal Cannula O2 Flow Rate 3.0 Intake and Output 12/09/21 12/09/21 12/10/21 15:00 23:00 07:00 Intake Total 60 ml 390 ml Output Total 1500 ml 700 ml 500 ml Balance -1500 ml -640 ml -110 ml SHAKIRA GRADY MD December 10, 2021 09:09
--- NOTE | 2021-12-10 10:00 | NUR ---
PT STATES SHE ONLY TAKES 100MG OF AMIODARONE NOT THE FULL 200MG TABLET. TAB CUT IN HALF AND 100MG ADMINISTERED PER PT REQUEST. PT REFUSED FUROSEMIDE STATING IT MAKES HER LEGS HURT AND SHE WILL TAKE IT TOMORROW. ALSO REFUSED TAMOXIFEN STATING SHE HAS NOT TAKEN MED FOR A YEAR. UPDATED DR. CHOWDARY.
[2021-12-10 11:00] VITALS: BP 133/62
--- NOTE | 2021-12-10 14:47 | PDOC ---
PULMONARY PROGRESS NOTES DATE: 12/10/21 TIME: 14:45 Subjective No new complaints Patient did not tolerate CPAP last night Today slightly more short of air Cough productive at times Vitals Vital Signs Date Time Temp Pulse Resp B/P (MAP) Pulse Ox O2 Delivery O2 Flow Rate FiO2 12/10/21 11:00 98.5 56 18 133/62 (85) 96 Nasal Cannula 2.0 98.5 ROS: No Nausea, No Chest Pain, No Abdominal Pain, No Increase Cough General: Alert Lungs: Clear, Crackles Cardiovascular: S1, S2 Abdomen: Soft Neuro Exam: Alert Extremities: Other Skin: Warm (Edema) Labs Laboratory Tests Test 12/09/21 06:40 12/10/21 05:20 Sodium Level 144 mmol/L (136-145) 144 mmol/L (136-145) Potassium Level 4.1 mmol/L (3.5-5.1) 4.2 mmol/L (3.5-5.1) Chloride Level 109 mmol/L (98-107) 108 mmol/L (98-107) Carbon Dioxide Level 29 mmol/L (21-32) 31 mmol/L (21-32) Anion Gap 6 (6-14) 5 (6-14) Blood Urea Nitrogen 15 mg/dL (7-20) 16 mg/dL (7-20) Creatinine 0.8 mg/dL (0.6-1.0) 0.8 mg/dL (0.6-1.0) Estimated GFR (Cockcroft-Gault) 69.6 69.6 Glucose Level 144 mg/dL (70-99) 173 mg/dL (70-99) Calcium Level 8.4 mg/dL (8.5-10.1) 8.5 mg/dL (8.5-10.1) DQ-Nxc-X-Type Natriuretic Peptide 1181 pg/mL (0-449) White Blood Count 7.0 x10^3/uL (4.0-11.0) Red Blood Count 3.22 x10^6/uL (3.50-5.40) Hemoglobin 9.8 g/dL (12.0-15.5) Hematocrit 31.0 % (36.0-47.0) Mean Corpuscular Volume 97 fL (79-100) Mean Corpuscular Hemoglobin 31 pg (25-35) Mean Corpuscular Hemoglobin Concent 32 g/dL (31-37) Red Cell Distribution Width 14.2 % (11.5-14.5) Platelet Count 285 x10^3/uL (140-400) Neutrophils (%) (Auto) 68 % (31-73) Lymphocytes (%) (Auto) 21 % (24-48) Monocytes (%) (Auto) 7 % (0-9) Eosinophils (%) (Auto) 4 % (0-3) Basophils (%) (Auto) 1 % (0-3) Neutrophils # (Auto) 4.8 x10^3/uL (1.8-7.7) Lymphocytes # (Auto) 1.5 x10^3/uL (1.0-4.8) Monocytes # (Auto) 0.5 x10^3/uL (0.0-1.1) Eosinophils # (Auto) 0.3 x10^3/uL (0.0-0.7) Basophils # (Auto) 0.1 x10^3/uL (0.0-0.2) BUN/Creatinine Ratio 20 (6-20) Total Bilirubin 0.2 mg/dL (0.2-1.0) Aspartate Amino Transf (AST/SGOT) 20 U/L (15-37) Alanine Aminotransferase (ALT/SGPT) 32 U/L (14-59) Alkaline Phosphatase 81 U/L (46-116) Total Protein 6.2 g/dL (6.4-8.2) Albumin 2.2 g/dL (3.4-5.0) Albumin/Globulin Ratio 0.6 (1.0-1.7) Laboratory Tests Test 12/10/21 05:20 White Blood Count 7.0 x10^3/uL (4.0-11.0) Red Blood Count 3.22 x10^6/uL (3.50-5.40) Hemoglobin 9.8 g/dL (12.0-15.5) Hematocrit 31.0 % (36.0-47.0) Mean Corpuscular Volume 97 fL (79-100) Mean Corpuscular Hemoglobin 31 pg (25-35) Mean Corpuscular Hemoglobin Concent 32 g/dL (31-37) Red Cell Distribution Width 14.2 % (11.5-14.5) Platelet Count 285 x10^3/uL (140-400) Neutrophils (%) (Auto) 68 % (31-73) Lymphocytes (%) (Auto) 21 % (24-48) Monocytes (%) (Auto) 7 % (0-9) Eosinophils (%) (Auto) 4 % (0-3) Basophils (%) (Auto) 1 % (0-3) Neutrophils # (Auto) 4.8 x10^3/uL (1.8-7.7) Lymphocytes # (Auto) 1.5 x10^3/uL (1.0-4.8) Monocytes # (Auto) 0.5 x10^3/uL (0.0-1.1) Eosinophils # (Auto) 0.3 x10^3/uL (0.0-0.7) Basophils # (Auto) 0.1 x10^3/uL (0.0-0.2) Sodium Level 144 mmol/L (136-145) Potassium Level 4.2 mmol/L (3.5-5.1) Chloride Level 108 mmol/L (98-107) Carbon Dioxide Level 31 mmol/L (21-32) Anion Gap 5 (6-14) Blood Urea Nitrogen 16 mg/dL (7-20) Creatinine 0.8 mg/dL (0.6-1.0) Estimated GFR (Cockcroft-Gault) 69.6 BUN/Creatinine Ratio 20 (6-20) Glucose Level 173 mg/dL (70-99) Calcium Level 8.5 mg/dL (8.5-10.1) Total Bilirubin 0.2 mg/dL (0.2-1.0) Aspartate Amino Transf (AST/SGOT) 20 U/L (15-37) Alanine Aminotransferase (ALT/SGPT) 32 U/L (14-59) Alkaline Phosphatase 81 U/L (46-116) Total Protein 6.2 g/dL (6.4-8.2) Albumin 2.2 g/dL (3.4-5.0) Albumin/Globulin Ratio 0.6 (1.0-1.7) Medications Active Scripts Medications Dose Route/Sig Max Daily Dose Days Date Category Dose Instructions Tamoxifen Citrate 20 Mg Tablet 1 Tab PO DAILY 30 12/06/21 Reported Levsin (Hyoscyamine Sulfate) 0.125 Mg Tablet 1 Tab SL Q4HRS 20 12/06/21 Reported Lidocaine PATCH (Lidocaine) 1 Each Adh..patch 2 Each TP DAILY 12/06/21 Reported REMOVE AFTER 12 HOURS Colace (Docusate Sodium) 100 Mg Capsule 1 Cap PO BID 30 12/06/21 Reported Milk Of Magnesia (Magnesium Hydroxide) 2,400 Mg/10 Ml Oral.susp 50 Ml PO PRN DAILY PRN 12/06/21 Reported Xarelto (Rivaroxaban) 20 Mg Tablet 1 Tab PO DAILY 30 12/06/21 Reported with food Metoprolol Tartrate 50 Mg Tablet 1 Tab PO BID 12/06/21 Reported Tylenol (Acetaminophen) 325 Mg Tablet 1-2 Tab PO PRN Q4HRS 12/06/21 Reported Amiodarone Hcl 200 Mg Tablet 1 Tab PO DAILY 12/06/21 Reported Impression . IMPRESSION: 1. Acute hypoxemic respiratory failure, multifactorial, suspect mainly due to acute on chronic systolic, diastolic heart failure. 2. Residual small pleural effusion partly loculated secondary to recent pneumonia with treatment for empyema, status post chest tube placement. 3. Valvular heart disease. 4. Critical care myopathy. 5. Paroxysmal atrial fibrillation. 6. Hypertension. 7. Uterine and breast cancer. 8. Type 2 diabetes. 9. Moderate aortic stenosis. 10. Chronic lymphedema and lower extremity cellulitis. 11. History of secondary pulmonary hypertension. 12. Obstructive sleep apnea DISCUSSION: I reviewed this current chest x-ray and previous CT of the chest. Not enough fluid to warrant a thoracentesis. The patient is relatively not very short of breath. Her shortness of breath upon admission was related to diastolic heart failure. I do not recommend any surgical intervention such as decortication at this time. Plan . Updated 12/10 Continue same RX Patient did not tolerate CPAP last night More short of breath today with cough Add nebulized treatments Add Augmentin Continue current support ALYSHA NAVARRETE MD December 10, 2021 14:47
[2021-12-10 15:02] VITALS: BP 136/64
--- NOTE | 2021-12-10 16:55 | NUR ---
WOUND PICTURES TAKEN AND DRESSINGS CHANGED. NO WOUND NOTED ON BUTTOCK
[2021-12-10] MEDS: RIVAROXABAN 10 MG TABLET. PO SCH (17:16)
[2021-12-10 19:35] VITALS: BP 128/62
[2021-12-10] MEDS: LACTOBACILLUS RHAMNOSUS GG 1 CAPSULE. PO SCH (21:08)
--- NOTE | 2021-12-10 22:38 | PN ---
DATE: 12/10/2021 SUBJECTIVE: The patient is resting, slightly propped up in bed, in no apparent respiratory distress. She is awake, alert. On questioning her, she stated that she is feeling generally much better. Her cough is much less. She has no chest tightness and wheezing is much improved. I did repeat a chest x-ray yesterday and her chest x-ray showed no evidence of significant interval change when accounting for differences in the patient's positioning or imaging changes. Persistent right pleural effusion with overlying airspace disease and curvilinear opacities in the right mid lung zone. PHYSICAL EXAMINATION: GENERAL: When I examined her, she was pale, not jaundiced or cyanosed. No lymphadenopathy, no thyromegaly, no jugular venous distention. She has mild bilateral lower limb edema. VITAL SIGNS: Her heart rate was 60, blood pressure was 137/63, temperature was 98.1, respiratory rate was 18 and oxygen saturation was 94% on 3 liters of oxygen. HEAD, EYES, EARS, NOSE, AND THROAT: Showed normocephalic, atraumatic. NECK: Supple. HEART: Showed normal first and second heart sounds. No gallop, rub or murmur. CHEST: Showed central trachea, equal bilateral chest expansion, air entry, very few scattered rhonchi. ABDOMEN: Distended, soft, nontender. 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 GENITALIA: She has an indwelling Kolb catheter. Her intake was 850, no output was recorded. LABORATORY WORK: This morning showed a white cell count of 7000, hemoglobin 10, hematocrit 31, MCV 97 and platelet count 285,000. Her chemistry showed a serum sodium 144, potassium 4.2, chloride 108, bicarbonate 31, anion gap of 5, BUN 16, creatinine 0.8. Estimated GFR was 69 mL per minute. Her glucose was 173, calcium was 8.5. Total bilirubin, AST, ALT, alkaline phosphatase were normal. Total protein 6.2, albumin was 2.2. ASSESSMENT: 1. Acute hypoxic respiratory failure due to: A. Right side pleural effusion. B. Congestive heart failure. C. Questionable obstructive sleep apnea. 2. Paroxysmal atrial fibrillation. 3. Hypertension. 4. Type 2 diabetes mellitus. 5. Moderate aortic stenosis. 6. Mitral and tricuspid regurgitation. 7. Chronic bilateral lower extremity lymphedema. 8. Pulmonary hypertension. 9. History of breast and endometrial carcinoma. PLAN: To continue with bronchodilators. Continue with antibiotic. Continue the amiodarone to control the heart rate and rivaroxaban for stroke prevention. The patient is refusing her tamoxifen as well as her Lasix. Her blood pressure is much better controlled now that she is on clonidine patch as well as amlodipine. ZHANG DR: Elan TID: [id number]
[2021-12-10 23:11] VITALS: BP 117/58
[2021-12-11 03:52] VITALS: BP 138/62
[2021-12-11 07:00] VITALS: BP 166/76
--- NOTE | 2021-12-11 07:01 | PN ---
DATE: 12/08/2021 SUBJECTIVE: The patient is resting, slightly propped up in bed, in no apparent respiratory distress. She is awake, alert. Denied any chest pain or shortness of breath. PHYSICAL EXAMINATION: GENERAL: When I examined her, she looked pale, but no jaundice, cyanosis or thyromegaly. No jugular venous distention. No lower limb edema. VITAL SIGNS: Her heart rate was 65, her blood pressure was 186/79, temperature was 97.7, respiratory rate was 17 and oxygen saturation was 98% on 2 liters of oxygen. HEAD, EYES, EARS, NOSE, AND THROAT: Normocephalic, atraumatic. NECK: Supple. HEART: Showed normal first and second heart sounds. No gallop, rub or murmur. CHEST: Showed central trachea, equal bilateral expansion, air entry, vesicular breath sounds. I could not appreciate any crepitation or rhonchi anteriorly. She has dull percussion noted and absent breath sounds on the right side posteriorly. Her intake 620, output was 800. LABORATORY DATA: Her lab work showed a white cell count of 5.8, hemoglobin 11, hematocrit 33, MCV 96 and platelet count 312. Serum sodium was 143, potassium 3.5, chloride 107, bicarbonate 29, anion gap of 7, BUN 12, creatinine 0.8. Estimated GFR was 69 mL per minute. Her glucose 128, calcium was 8.4. Total bilirubin, AST, ALT, alkaline phosphatase were normal. Total protein 6.5, albumin was 2.4. ASSESSMENT: 1. Acute on chronic diastolic congestive heart failure. 2. Acute hypoxic respiratory failure, likely due to multifactorial including: A. Right-sided pleural effusion. B. Congestive heart failure. C. Likely morbid obesity and obstructive sleep apnea. She has multiple other medical problems including: A. Paroxysmal atrial fibrillation. B. Hypertension. C. Type 2 diabetes mellitus. D. She is known to have moderate aortic stenosis and mitral and tricuspid regurgitation. E. Chronic bilateral lower extremity lymphedema and history of pulmonary hypertension. She did have a history of breast and endometrial carcinoma. PLAN: Her hypertension is still suboptimally controlled. I will increase her clonidine patch to 0.3 mg. I will await for the evaluation by ____. I will discuss with the social work job titles whether she qualifies to go to [facility] and also whether there is a way to qualify her for a CPAP for her obstructive sleep apnea. KADEN/CELINA/LEVI DR: Elan TID: [id number]
[2021-12-11] MEDS: AMOXICILLIN/K CLAV 875/125MG TABLET. PO SCH (09:00)
[2021-12-11] MEDS: LACTOBACILLUS RHAMNOSUS GG 1 CAPSULE. PO SCH (09:00)
[2021-12-11] MEDS: FUROSEMIDE 40 MG TABLET. PO SCH (09:00)
[2021-12-11] MEDS: TAMOXIFEN 10 MG TABLET PO SCH (09:00)
[2021-12-11] MEDS: LIDOCAINE (700MG/PATCH) PATCH. TP SCH (09:00)
[2021-12-11] MEDS: POTASSIUM CHLORIDE 10 MEQ TABLET.ER. PO SCH (09:00)
[2021-12-11] MEDS: DOCUSATE SODIUM 100 MG CAPSULE. PO SCH (09:01)
[2021-12-11] MEDS: AMIODARONE HCL 200 MG TABLET. PO SCH (09:01)
[2021-12-11] MEDS: METOPROLOL TART IMMED RELEASE 50 MG TABLET. PO SCH (09:01)
--- NOTE | 2021-12-11 09:07 | PDOC ---
PULMONARY PROGRESS NOTES DATE: 12/11/21 TIME: 09:06 Subjective No new complaints Patient did not tolerate CPAP last night Today slightly more short of air Cough productive at times Vitals Vital Signs Date Time Temp Pulse Resp B/P (MAP) Pulse Ox O2 Delivery O2 Flow Rate FiO2 12/11/21 09:01 53 166/76 12/11/21 08:21 Nasal Cannula 2.0 12/11/21 07:00 98.7 19 99 98.7 ROS: No Nausea, No Chest Pain, No Abdominal Pain, No Increase Cough General: Alert Lungs: Clear, Crackles Cardiovascular: S1, S2 Abdomen: Soft Neuro Exam: Alert Extremities: Other Skin: Warm (Edema) Labs Laboratory Tests Test 12/10/21 05:20 White Blood Count 7.0 x10^3/uL (4.0-11.0) Red Blood Count 3.22 x10^6/uL (3.50-5.40) Hemoglobin 9.8 g/dL (12.0-15.5) Hematocrit 31.0 % (36.0-47.0) Mean Corpuscular Volume 97 fL (79-100) Mean Corpuscular Hemoglobin 31 pg (25-35) Mean Corpuscular Hemoglobin Concent 32 g/dL (31-37) Red Cell Distribution Width 14.2 % (11.5-14.5) Platelet Count 285 x10^3/uL (140-400) Neutrophils (%) (Auto) 68 % (31-73) Lymphocytes (%) (Auto) 21 % (24-48) Monocytes (%) (Auto) 7 % (0-9) Eosinophils (%) (Auto) 4 % (0-3) Basophils (%) (Auto) 1 % (0-3) Neutrophils # (Auto) 4.8 x10^3/uL (1.8-7.7) Lymphocytes # (Auto) 1.5 x10^3/uL (1.0-4.8) Monocytes # (Auto) 0.5 x10^3/uL (0.0-1.1) Eosinophils # (Auto) 0.3 x10^3/uL (0.0-0.7) Basophils # (Auto) 0.1 x10^3/uL (0.0-0.2) Sodium Level 144 mmol/L (136-145) Potassium Level 4.2 mmol/L (3.5-5.1) Chloride Level 108 mmol/L (98-107) Carbon Dioxide Level 31 mmol/L (21-32) Anion Gap 5 (6-14) Blood Urea Nitrogen 16 mg/dL (7-20) Creatinine 0.8 mg/dL (0.6-1.0) Estimated GFR (Cockcroft-Gault) 69.6 BUN/Creatinine Ratio 20 (6-20) Glucose Level 173 mg/dL (70-99) Calcium Level 8.5 mg/dL (8.5-10.1) Total Bilirubin 0.2 mg/dL (0.2-1.0) Aspartate Amino Transf (AST/SGOT) 20 U/L (15-37) Alanine Aminotransferase (ALT/SGPT) 32 U/L (14-59) Alkaline Phosphatase 81 U/L (46-116) Total Protein 6.2 g/dL (6.4-8.2) Albumin 2.2 g/dL (3.4-5.0) Albumin/Globulin Ratio 0.6 (1.0-1.7) Medications Active Scripts Medications Dose Route/Sig Max Daily Dose Days Date Category Dose Instructions Tamoxifen Citrate 20 Mg Tablet 1 Tab PO DAILY 30 12/06/21 Reported Levsin (Hyoscyamine Sulfate) 0.125 Mg Tablet 1 Tab SL Q4HRS 20 12/06/21 Reported Lidocaine PATCH (Lidocaine) 1 Each Adh..patch 2 Each TP DAILY 12/06/21 Reported REMOVE AFTER 12 HOURS Colace (Docusate Sodium) 100 Mg Capsule 1 Cap PO BID 30 12/06/21 Reported Milk Of Magnesia (Magnesium Hydroxide) 2,400 Mg/10 Ml Oral.susp 50 Ml PO PRN DAILY PRN 12/06/21 Reported Xarelto (Rivaroxaban) 20 Mg Tablet 1 Tab PO DAILY 30 12/06/21 Reported with food Metoprolol Tartrate 50 Mg Tablet 1 Tab PO BID 12/06/21 Reported Tylenol (Acetaminophen) 325 Mg Tablet 1-2 Tab PO PRN Q4HRS 12/06/21 Reported Amiodarone Hcl 200 Mg Tablet 1 Tab PO DAILY 12/06/21 Reported Impression . IMPRESSION: 1. Acute hypoxemic respiratory failure, multifactorial, suspect mainly due to acute on chronic systolic, diastolic heart failure. 2. Residual small pleural effusion partly loculated secondary to recent pneumonia with treatment for empyema, status post chest tube placement. 3. Valvular heart disease. 4. Critical care myopathy. 5. Paroxysmal atrial fibrillation. 6. Hypertension. 7. Uterine and breast cancer. 8. Type 2 diabetes. 9. Moderate aortic stenosis. 10. Chronic lymphedema and lower extremity cellulitis. 11. History of secondary pulmonary hypertension. 12. Obstructive sleep apnea DISCUSSION: I reviewed this current chest x-ray and previous CT of the chest. Not enough fluid to warrant a thoracentesis. The patient is relatively not very short of breath. Her shortness of breath upon admission was related to diastolic heart failure. I do not recommend any surgical intervention such as decortication at this time. Plan . Updated 12/10 Continue same RX Patient did not tolerate CPAP last night More short of breath today with cough Add nebulized treatments Add Augmentin Continue current support ALYSHA NAVARRETE MD December 11, 2021 09:06
--- NOTE | 2021-12-11 10:06 | NUR ---
SS following up with discharge planning. SS reviewed pt chart and discussed with pt RN. Pt is currently requiring oxygen at two liters nasal canula. PT/OT recommended acute rehabilitation. Pt wanting to go to [facility], ; fax [phone]. Discharge orders received and sent to [facility] with referral. SS will continue to follow for discharge planning. Addendum: 12/11/21 at 1311 by BENTON ALLEN SS Pt accepted at [facility]. Pt will discharge today and go to [facility] at 1430 via stretcher transport. [facility] providing transportation. Pt and pt's RN notified.
--- NOTE | 2021-12-11 10:08 | SNU/HH DC ---
DISCHARGE ORDERS DISCHARGE INFORMATION: DISCHARGE DATE: December 11, 2021 FINAL DIAGNOSIS Problems Medical Problems: (1) Acute exacerbation of CHF (congestive heart failure) Status: Acute (2) Hypoxia Status: Acute CONDITION ON DISCHARGE: Stable CODE STATUS: Code Status: Full LTAC: ADMIT TO LTAC: Yes POST DISCHARGE ORDERS: ACTIVITY ORDERS: Activity as tolerated DIET AFTER DISCHARGE: Cardiac TREATMENT/EQUIPMENT ORDERS: Physical Therapy For: Evalulation/Treatment Occupational Therapy For: Evaluation/Treatment DISCHARGE MEDICATIONS: Home Meds Reported Medications Tamoxifen Citrate (TAMOXIFEN CITRATE) 20 Mg Tablet, 1 TAB PO DAILY for for 30 Days, #30 TAB 0 Refills 12/06/21 Hyoscyamine Sulfate (LEVSIN) 0.125 Mg Tablet, 1 TAB SL Q4HRS for bladder spasms for 20 Days, #120 TAB 0 Refills 12/06/21 Lidocaine (Lidocaine PATCH ) 1 Each Adh..patch, 2 EACH TP DAILY for FOR LOCAL PAIN, PATCH REMOVE AFTER 12 HOURS 12/06/21 Docusate Sodium (COLACE) 100 Mg Capsule, 1 CAP PO BID for constipation for 30 Days, #60 CAP 0 Refills 12/06/21 Magnesium Hydroxide (MILK OF MAGNESIA) 2,400 Mg/10 Ml Oral.susp, 50 ML PO PRN DAILY PRN for CONSTIPATION, MISC 12/06/21 Rivaroxaban (XARELTO) 20 Mg Tablet, 1 TAB PO DAILY for for 30 Days, #30 TAB 0 Refills with food 12/06/21 Metoprolol Tartrate (METOPROLOL TARTRATE) 50 Mg Tablet, 1 TAB PO BID for , #60 TAB 5 Refills 12/06/21 Acetaminophen (TYLENOL) 325 Mg Tablet, 1-2 TAB PO PRN Q4HRS for , #30 TAB 12/06/21 Amiodarone Hcl (AMIODARONE HCL) 200 Mg Tablet, 1 TAB PO DAILY for , #90 TAB 1 Refill 12/06/21 Discontinued Reported Medications Rivaroxaban (XARELTO) 10 Mg Tablet, 1 TAB PO DAILY for for 7 Days, #7 TAB 0 Refills 12/06/21 Metoprolol Tartrate (Lopressor) 100 Mg Tablet, 1 TAB PO BID for for 30 Days, #60 TAB 0 Refills 12/06/21 KLEVER CHOWDARY MD December 11, 2021 10:08
[2021-12-11 11:00] VITALS: BP 142/66
--- NOTE | 2021-12-11 11:25 | PDOC ---
ELINOR ANGULO APRN 12/11/21 1125: CARDIO Progress Notes Date and Time Date of Service 12/11/21 Time of Evaluation 1120 Subjective Subjective: No Chest Pain, No shortness of breath, No Palpitations Vitals Vitals Vital Signs Date Time Temp Pulse Resp B/P (MAP) Pulse Ox O2 Delivery O2 Flow Rate FiO2 12/11/21 11:00 97.9 56 20 142/66 (91) 100 Room Air 2.0 97.9 Weight Weight [ ] Input and Output Intake and Output Intake and Output 12/11/21 07:00 Intake Total 360 ml Output Total 500 ml Balance -140 ml Intake Oral 360 ml Output Urine Total 500 ml # Voids 2 Microbiology Micro Microbiology 12/06/21 Urine Culture - Final, Complete Physical Exam HEENT: Neck Supple W Full Motion Chest: Symmetric LUNGS: Other (diminished bases) Heart: RRR (SR/SB) Abdomen: Soft N/T Extremities: No Calf Tenderness, Other (1+ bilateral LE pitting edema) Neurology: alert, oriented, follow commands Assessment Assessment 1. Acute on chronic diastolic CHF: better compensated. 2. Acute hypoxic respiratory failure: persisted right pleural effusion and CHF with suspected uncontrolled TAMEKA 2. PAFIB: Maintaining SR 3. Prior hospice: revoked 4. HTN: labile but better controlled 5. Hx of breast and uterine CA 6. Hx of DM2 7. Valvular insufficiency: Moderate 8. Persistent right pleural effusion: was considered for decortication at [facility] 9. Obesity and debility 10. Chronic lymphedema with left lerma wound 11. Hx of Pulmonary HTN Recommendations Patient refusing oral Lasix Continue amiodarone for rhythm maintenance. Metoprolol for rate control Xarelto for stroke prevention Outpatient ischemic evaluation Supportive care Justicifation of Admission Dx: Justifications for Admission: Justification of Admission Dx: Yes SHAKIRA GRADY MD 12/11/21 1843: CARDIO Progress Notes Assessment Assessment Patient seen and examined. Agree with IT SALES EXECUTIVE's assessment and plan. Ac on chr diast HF better compensated PAF maintaining SR Continue xarelto for stroke prophylaxis Plan ischemic evaluation as outpatient ELINOR ANGULO APRN December 11, 2021 11:25 SHAKIRA GRADY MD December 11, 2021 18:43
--- NOTE | 2021-12-11 14:49 | PDOC ---
PULMONARY PROGRESS NOTES DATE: 12/11/21 TIME: 14:48 Subjective No new complaints Patient did not tolerate CPAP last night Feels better today not more short of air Vitals Vital Signs Date Time Temp Pulse Resp B/P (MAP) Pulse Ox O2 Delivery O2 Flow Rate FiO2 12/11/21 11:00 97.9 56 20 142/66 (91) 100 Room Air 2.0 97.9 ROS: No Nausea, No Chest Pain, No Abdominal Pain, No Increase Cough General: Alert Lungs: Clear, Crackles Cardiovascular: S1, S2 Abdomen: Soft Neuro Exam: Alert Extremities: Other Skin: Warm (Edema) Labs Laboratory Tests Test 12/10/21 05:20 White Blood Count 7.0 x10^3/uL (4.0-11.0) Red Blood Count 3.22 x10^6/uL (3.50-5.40) Hemoglobin 9.8 g/dL (12.0-15.5) Hematocrit 31.0 % (36.0-47.0) Mean Corpuscular Volume 97 fL (79-100) Mean Corpuscular Hemoglobin 31 pg (25-35) Mean Corpuscular Hemoglobin Concent 32 g/dL (31-37) Red Cell Distribution Width 14.2 % (11.5-14.5) Platelet Count 285 x10^3/uL (140-400) Neutrophils (%) (Auto) 68 % (31-73) Lymphocytes (%) (Auto) 21 % (24-48) Monocytes (%) (Auto) 7 % (0-9) Eosinophils (%) (Auto) 4 % (0-3) Basophils (%) (Auto) 1 % (0-3) Neutrophils # (Auto) 4.8 x10^3/uL (1.8-7.7) Lymphocytes # (Auto) 1.5 x10^3/uL (1.0-4.8) Monocytes # (Auto) 0.5 x10^3/uL (0.0-1.1) Eosinophils # (Auto) 0.3 x10^3/uL (0.0-0.7) Basophils # (Auto) 0.1 x10^3/uL (0.0-0.2) Sodium Level 144 mmol/L (136-145) Potassium Level 4.2 mmol/L (3.5-5.1) Chloride Level 108 mmol/L (98-107) Carbon Dioxide Level 31 mmol/L (21-32) Anion Gap 5 (6-14) Blood Urea Nitrogen 16 mg/dL (7-20) Creatinine 0.8 mg/dL (0.6-1.0) Estimated GFR (Cockcroft-Gault) 69.6 BUN/Creatinine Ratio 20 (6-20) Glucose Level 173 mg/dL (70-99) Calcium Level 8.5 mg/dL (8.5-10.1) Total Bilirubin 0.2 mg/dL (0.2-1.0) Aspartate Amino Transf (AST/SGOT) 20 U/L (15-37) Alanine Aminotransferase (ALT/SGPT) 32 U/L (14-59) Alkaline Phosphatase 81 U/L (46-116) Total Protein 6.2 g/dL (6.4-8.2) Albumin 2.2 g/dL (3.4-5.0) Albumin/Globulin Ratio 0.6 (1.0-1.7) Medications Active Scripts Medications Dose Route/Sig Max Daily Dose Days Date Category Dose Instructions Tamoxifen Citrate 20 Mg Tablet 1 Tab PO DAILY 30 12/06/21 Reported Levsin (Hyoscyamine Sulfate) 0.125 Mg Tablet 1 Tab SL Q4HRS 20 12/06/21 Reported Lidocaine PATCH (Lidocaine) 1 Each Adh..patch 2 Each TP DAILY 12/06/21 Reported REMOVE AFTER 12 HOURS Colace (Docusate Sodium) 100 Mg Capsule 1 Cap PO BID 30 12/06/21 Reported Milk Of Magnesia (Magnesium Hydroxide) 2,400 Mg/10 Ml Oral.susp 50 Ml PO PRN DAILY PRN 12/06/21 Reported Xarelto (Rivaroxaban) 20 Mg Tablet 1 Tab PO DAILY 30 12/06/21 Reported with food Metoprolol Tartrate 50 Mg Tablet 1 Tab PO BID 12/06/21 Reported Tylenol (Acetaminophen) 325 Mg Tablet 1-2 Tab PO PRN Q4HRS 12/06/21 Reported Amiodarone Hcl 200 Mg Tablet 1 Tab PO DAILY 12/06/21 Reported Impression . IMPRESSION: 1. Acute hypoxemic respiratory failure, multifactorial, suspect mainly due to acute on chronic systolic, diastolic heart failure. 2. Residual small pleural effusion partly loculated secondary to recent pneumonia with treatment for empyema, status post chest tube placement. 3. Valvular heart disease. 4. Critical care myopathy. 5. Paroxysmal atrial fibrillation. 6. Hypertension. 7. Uterine and breast cancer. 8. Type 2 diabetes. 9. Moderate aortic stenosis. 10. Chronic lymphedema and lower extremity cellulitis. 11. History of secondary pulmonary hypertension. 12. Obstructive sleep apnea DISCUSSION: I reviewed this current chest x-ray and previous CT of the chest. Not enough fluid to warrant a thoracentesis. The patient is relatively not very short of breath. Her shortness of breath upon admission was related to diastolic heart failure. I do not recommend any surgical intervention such as decortication at this time. Plan . Updated 12/11 Okay to transfer Continue same RX Follow-up with me in the outpatient department, may need outpatient BiPAP study with titration ALYSHA NAVARRETE MD December 11, 2021 14:49
--- NOTE | 2021-12-11 15:37 | NUR ---
Pt discharged to [facility]. Report given to Baldemar. Pt belongings packed including cell phone, cloth napping supervisor, clothing and lymphedema stockings. Pt assisted to stretcher and was taken by transportation.
== END 2021-12-11 15:40 | DRG 291 ==
LOC: ER 09:34 → 6 SOUTH 12:25
PROVIDERS: ADMIT Internal Medicine; ATTEND Internal Medicine
DX: I11.0 Hypertensive heart disease with heart failure (principal); I50.33 Acute on chronic diastolic (congestive) heart failure; J96.01 Acute respiratory failure with hypoxia; G72.81 Critical illness myopathy; I48.20 Chronic atrial fibrillation, unspecified; J98.11 Atelectasis; L03.119 Cellulitis of unspecified part of limb; C50.919 Malignant neoplasm of unspecified site of unspecified female breast; D64.9 Anemia, unspecified; E11.9 Type 2 diabetes mellitus without complications; E66.01 Morbid (severe) obesity due to excess calories; G47.33 Obstructive sleep apnea (adult) (pediatric); H54.62 Unqualified visual loss, left eye, normal vision right eye; I08.3 Combined rheumatic disorders of mitral, aortic and tricuspid valves; I25.10 Atherosclerotic heart disease of native coronary artery without angina pectoris; I27.29 Other secondary pulmonary hypertension; I48.0 Paroxysmal atrial fibrillation; I89.0 Lymphedema, not elsewhere classified; Z82.3 Family history of stroke; Z85.3 Personal history of malignant neoplasm of breast; Z85.42 Personal history of malignant neoplasm of other parts of uterus; Z87.01 Personal history of pneumonia (recurrent); Z87.891 Personal history of nicotine dependence; Z90.49 Acquired absence of other specified parts of digestive tract; Z90.710 Acquired absence of both cervix and uterus; M19.90 Unspecified osteoarthritis, unspecified site; Z68.38 Body mass index [BMI] 38.0-38.9, adult
CPT/HCPCS: 36415; 71045; 80048; 80053; 80061; 80307; 81001; 83036; 83690; 83735; 83880; 84145; 84443; 84484; 85025; 85027; 85610; 87086; 93005; 94660; 94760; 96374; J1940; 97530-GO; 97530-GP; 97535-GO; 99285-25; G0378